=== PATIENT | female | born 1950 | race African-American/Black ===

== ENCOUNTER 2016-12-17 09:04 | Inpatient (IN) | payer MEDICARE, MEDICAID ==
[2016-12-17] VITALS (7 sets, daily range): BP systolic 99–164; BP diastolic 48–92
[~2016-12-17] VITALS: Ht 162.6 cm; Wt 72.6 kg
[2016-12-17] MEDS ORDERED: PRO-STAT LIQUID30 ML ORAL (09:37)
[2016-12-17] MEDS ORDERED: NEPHRO-VITE RX1 EAC1 PO (09:40)
[2016-12-17] MEDS ORDERED: METOPROLOL TART25 MG ORAL (09:40)
[2016-12-17] MEDS ORDERED: LYRICA75 M1 ORAL (09:40)
[2016-12-17] MEDS ORDERED: AMIODARONE HCL400 M1 ORAL (09:40)
[2016-12-17] MEDS ORDERED: NORVASC10 MG ORAL (09:40)
[2016-12-17] MEDS ORDERED: RENAGEL800 MG ORAL (09:40)
[2016-12-17] MEDS ORDERED: LOSARTAN POTASS50 MG ORAL (09:40)
[2016-12-17] MEDS ORDERED: OMEPRAZOLE40 M1 ORAL (09:40)
[2016-12-17 09:53] LABS: MEAN CORPUSCULAR HEMOGLOBIN 26.5 PG (27.0-31.0); MEAN CORPUSCULAR HGB CONC 28.7 G/DL (32.0-36.0); MEAN CORPUSCULAR VOLUME 93 FL (80-99); MEAN PLATELET VOLUME 11.3 FL (6.5-10.1); PLATELET COUNT 128 K/UL (150-450); RED BLOOD COUNT 4.83 M/UL (4.20-5.40); RED CELL DISTRIBUTION WIDTH 21.7 % (11.6-14.8); WHITE BLOOD COUNT 14.4 K/UL (4.8-10.8)
[2016-12-17] MEDS ORDERED: Nitroglycerin Subl 0.4mg tab (Bottle Of 25) SL ONE (10:00)
[2016-12-17 10:09] LABS: PROTHROMBIN TIME 10.3 SEC (9.30-11.50)
[2016-12-17 10:19] LABS: CALCIUM 10.1 mg/dL (8.6-10.2); CREATININE 6.5 mg/dL (0.5-0.9); GLOMERULAR FILTRATION RATE 7.8 mL/min (>60); POTASSIUM 4.9 mEQ/L (3.4-4.9); TOTAL PROTEIN 8.6 g/dL (6.6-8.7)
[2016-12-17 10:30] LABS: TROPONIN I < 0.30 ng/mL (<=0.30)
[2016-12-17] MEDS ORDERED: Ampicillin/Sulbactam Sod 3 GM in NS 110 ML IVPB ONE (10:30)
--- NOTE | 2016-12-17 10:41 | Emergency Room Report ---
History of Present Illness General Chief Complaint: General Complaint Source: Patient, Medical Record Present Illness HPI Patient is a 66-year-old female sent in by ambulance after increased hemoptysis. The patient reportedly coughed up approximately 10 mL of blood which was bright red. She had prior history of end-stage renal disease and was dialyzed yesterday. The patient had prior episodes of similar symptoms. She denied any chest pain. Patient was not noted been nauseated. 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 She reported having some generalized weakness. She denies taking anticoagulants. Allergies: Coded Allergies: [place] (Verified Allergy, Unknown, 12/17/16) MORPHINE (Verified Allergy, Unknown, 12/17/16) STRAWBERRY (Verified Allergy, Unknown, 12/17/16) Uncoded Allergies: PEANUTS (Allergy, Unknown, 12/17/16) PLASTIC TAPE (Allergy, Unknown, 12/17/16) Patient History Past Medical History: see triage record Reviewed Nursing Documentation: PMH: Agreed, PSxH: Agreed Nursing Documentation-PMH Past Medical History: No History, Except For Hx COPD: Yes Hx Diabetes: Yes Hx Gastrointestinal Problems: Yes - GERD Hx Dialysis: Yes - last dialysis 12/16/16 ([facility], [facility], Sat) Review of Systems All Other Systems: negative except mentioned in HPI Physical Exam Vital Signs Date Time Temp Pulse Resp B/P Pulse Ox O2 Delivery O2 Flow Rate FiO2 12/17/16 09:04 97.9 106 18 170/81 96 Room Air Sp02 EP Interpretation: reviewed, normal General Appearance: normal inspection, well appearing, no apparent distress, alert, GCS 15, obese Head: atraumatic ENT: normal ENT inspection, hearing grossly normal, normal voice Neck: normal inspection, full range of motion, supple, no bony tend Respiratory: normal inspection, no respiratory distress, no retraction, no wheezing, rales Cardiovascular #1: regular rate, rhythm, no edema Gastrointestinal: normal inspection, normal bowel sounds, non tender, soft, no guarding, no hernia Genitourinary: no CVA tenderness Musculoskeletal: back normal, normal range of motion, other - metatarsal amputation to right foot\ Neurologic: normal inspection, alert, oriented x3, responsive, homicide investigator III-XII nml as tested, speech normal Psychiatric: normal inspection, judgement/insight normal, mood/affect normal Skin: normal inspection, normal color, no rash Medical Decision Making Diagnostic Impression: Primary Impression: Hemoptysis Additional Impressions: ESRD (end stage renal disease) Anemia Hypertension ER Course Patient presented for hemoptysis. Differential diagnosis included was not limited to pulmonary embolism, tuberculosis arterial venous malformation, necrotizing pneumonia, coagulopathy among others. Because of complexity of patient's case laboratory testing and imaging studies were ordered. A chest x-ray one view interpreted by me showed cardiomegaly without evidence of mediastinal widening, vascular congestion was noted. I laboratory testing was notable for normal potassium as well as adequate hemoglobin and hematocrit and platelet count. The patient noted be somewhat thrombocytopenic. Patient was noted to have elevated white blood count was empirically given IV Unasyn. Patient was typed and screened. Because of patient's acuity the patient is being admitted to the hospital for further management and treatment. Dr. Dheeraj Barriga was contacted for inpatient management since he covers for the patient's primary physician. Dr. venegas was contacted for pulmonary consult. Laboratory Tests Test 12/17/16 09:30 White Blood Count 14.4 K/UL (4.8-10.8) H Red Blood Count 4.83 M/UL (4.20-5.40) Hemoglobin 12.8 G/DL (12.0-16.0) Hematocrit 44.8 % (37.0-47.0) Mean Corpuscular Volume 93 FL (80-99) Mean Corpuscular Hemoglobin 26.5 PG (27.0-31.0) L Mean Corpuscular Hemoglobin Concent 28.7 G/DL (32.0-36.0) L Red Cell Distribution Width 21.7 % (11.6-14.8) H Platelet Count 128 K/UL (150-450) L Mean Platelet Volume 11.3 FL (6.5-10.1) H Neutrophils (%) (Auto) % (45.0-75.0) Lymphocytes (%) (Auto) % (20.0-45.0) Monocytes (%) (Auto) % (1.0-10.0) Eosinophils (%) (Auto) % (0.0-3.0) Basophils (%) (Auto) % (0.0-2.0) Neutrophils % (Manual) Pending Lymphocytes % (Manual) Pending Platelet Estimate Pending Platelet Morphology Pending Prothrombin Time 10.3 SEC (9.30-11.50) Prothrombin Time INR 1.0 (0.9-1.1) PTT 28 SEC (23-33) Sodium Level 141 mEQ/L (135-145) Potassium Level 4.9 mEQ/L (3.4-4.9) Chloride Level 101 mEQ/L (98-107) Carbon Dioxide Level 21 mEQ/L (20-30) Anion Gap 19 (5-15) H Blood Urea Nitrogen 30 mg/dL (7-23) H Creatinine 6.5 mg/dL (0.5-0.9) H Estimate Glomerular Filtration Rate 7.8 mL/min (>60) Glucose Level 233 mg/dL (74-106) H Lactic Acid Level 1.70 mmol/L (0.66-2.22) Calcium Level 10.1 mg/dL (8.6-10.2) Total Bilirubin 0.4 mg/dL (0.0-1.2) Aspartate Amino Transferase (AST) 13 U/L (5-40) Alanine Aminotransferase (ALT) 9 U/L (3-33) Alkaline Phosphatase 112 U/L (35-104) H Total Creatine Kinase 74 U/L (26-140) Creatine Kinase MB Pending Troponin I < 0.30 ng/mL (<=0.30) Total Protein 8.6 g/dL (6.6-8.7) Albumin 4.4 g/dL (3.5-5.2) Globulin 4.2 g/dL Albumin/Globulin Ratio 1.0 (1.0-2.7) Last Vital Signs Date Time Temp Pulse Resp B/P Pulse Ox O2 Delivery O2 Flow Rate FiO2 12/17/16 09:56 99/48 12/17/16 09:04 97.9 106 18 96 Room Air Status: unchanged Disposition: ADMITTED INPATIENT Condition: Serious Referrals: NON PHYSICIAN (PCP) Tarun Bob Dec 17, 2016 10:41
[2016-12-17] MEDS ORDERED: Unasyn 3gm Inj ONE (11:08)
[2016-12-17] MEDS ORDERED: Ampicillin/Sulbactam Sod 3 GM in D5W 110 ML IVPB ONE (11:15)
[2016-12-17 11:26] LABS: ANISOCYTOSIS 2+; BAND NEUTROPHILS % (MANUAL) 4 % (0-8); BASOPHILS % (MANUAL) 0 % (0-2); EOSINOPHILS % (MANUAL) 0 % (0-3); HYPOCHROMASIA 1+; LYMPHOCYTES % (MANUAL) 2 % (20-45); NEUTROPHILS % (MANUAL) 83 % (45-75); PLATELET ESTIMATE DECREASED; PLATELET MORPHOLOGY NORMAL; TOTAL CELLS COUNTED 100
--- NOTE | 2016-12-17 12:18 | Diagnostic Imaging Report ---
Indication: COUGH Technique: One view of the chest Comparison: none Findings: There is mild generalized interstitial edema. The heart is enlarged. There may be a small left pleural effusion. Sizable osseous defects in both humeral heads likely reflect old Hill-Sachs injuries. There is a right jugular tunneled dialysis catheter Impression: Cardiomegaly Mild generalized interstitial edema Suspect bilateral humeral head chronic Hill-Sachs deformity
--- NOTE | 2016-12-17 13:24 | Consultation ---
Consult Note Consult Note asked to eval for dialysis management- Chief Complaint: vomiting and coughing ? blood Patient is a 66-year-old female sent in by ambulance after increased hemoptysis. The patient reportedly coughed up approximately 10 mL of blood which was bright red. She had prior history of end-stage renal disease and was dialyzed yesterday. The patient had prior episodes of similar symptoms. She denied any chest pain. Patient was not noted been nauseated. 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 She reported having some generalized weakness. She denies taking anticoagulants. Allergies: [place] (Verified Allergy, Unknown, 12/17/16) MORPHINE (Verified Allergy, Unknown, 12/17/16) STRAWBERRY (Verified Allergy, Unknown, 12/17/16) PEANUTS (Allergy, Unknown, 12/17/16) PLASTIC TAPE (Allergy, Unknown, 12/17/16) Hx COPD: Yes Hx Diabetes: Yes Hx Gastrointestinal Problems: Yes - GERD Hx Dialysis: Yes - last dialysis 12/16/16 ([facility] Massey, Michele) patient last dialysed yesterday- patient interviewed and examined in ER data reviewed patient lethargic / Tachycardiac- soft abd. previous trans met tarsal amputation left Assessment/Plan status: ESRD- due HD in am 12/18 HTN DM Hemoptysis vs bloody vomitus plan: HD in am- NPO- Per pulm and GI Med adjustment per orders NIALL HOLDER Dec 17, 2016 13:24
--- NOTE | 2016-12-17 15:29 | Consultation ---
History of Present Illness General Date patient seen: Dec 17, 2016 Chief Complaint: General Complaint Referring physician: Dr. Barriga Reason for Consultation: Hemoptysis Present Illness HPI 66-year-old female with hx of CHF, ESRF, DM, COPD, on HD sent in by ambulance with CC of hemoptysis. The patient reportedly coughed up approximately 10 mL of blood which was bright red. She had prior history of end -stage renal disease and was dialyzed yesterday. There are no other symptos, no fever, no chills, nor chest pain. Allergies: Coded Allergies: [place] (Verified Allergy, Unknown, 12/17/16) MORPHINE (Verified Allergy, Unknown, 12/17/16) STRAWBERRY (Verified Allergy, Unknown, 12/17/16) Uncoded Allergies: PEANUTS (Allergy, Unknown, 12/17/16) PLASTIC TAPE (Allergy, Unknown, 12/17/16) Medication History Scheduled Amino Acids/Protein Hydrolys (Pro-Stat Liquid), 30 ML ORAL TWICE A DAY, ( Reported) Amiodarone Hcl* (Amiodarone Hcl*), 200 MG ORAL EVERY 12 HOURS, (Reported) Amlodipine Besylate (Norvasc), 10 MG ORAL DAILY, (Reported) Losartan Potassium* (Losartan Potassium*), 50 MG ORAL BID, (Reported) Metoprolol Tartrate* (Metoprolol Tartrate*), 25 MG ORAL EVERY 12 HOURS, ( Reported) Omeprazole (Omeprazole), 40 MG ORAL DAILY, (Reported) Sevelamer Hcl (Renagel), 800 MG ORAL THREE TIMES A DAY, (Reported) Vit B Cmplx 3/Fa/Vit C/Biotin (Nephro-Pascale Rx Tablet), 1 EACH PO DAILY, ( Reported) Scheduled PRN Pregabalin* (Lyrica*), 75 MG ORAL THREE TIMES A DAY PRN for For Pain, (Reported) Patient History Healthcare decision maker NONE Resuscitation status Do Not Intubate Advanced Directive on File Yes Past Medical/Surgical History Past Medical/Surgical History: (1) ESRD (end stage renal disease) (2) Hypertension (3) HTN (hypertension) (4) Diabetes Review of Systems All Other Systems: negative except mentioned in HPI Physical Exam General Appearance: WD/WN, no apparent distress Lines, tubes and drains: peripheral HEENT: normocephalic, atraumatic Neck: non-tender, normal alignment Respiratory/Chest: chest wall non-tender, rhonchi - left, rhonchi - right Cardiovascular/Chest: normal peripheral pulses, normal rate Abdomen: normal bowel sounds, soft Genitourinary/Rectal: normal genital exam Extremities: normal range of motion, non-tender Last 24 Hour Vital Signs Date Time Temp Pulse Resp B/P Pulse Ox O2 Delivery O2 Flow Rate FiO2 12/17/16 13:58 98.3 98 20 162/92 98 Nasal Cannula 2.0 12/17/16 12:55 2.0 12/17/16 12:53 97.9 97 18 157/79 98 Room Air 3.0 12/17/16 12:38 97 18 157/79 98 Room Air 3.0 12/17/16 11:12 98 18 151/65 96 Room Air 12/17/16 10:38 97 30 160/79 99 Nasal Cannula 3.0 12/17/16 09:56 99/48 12/17/16 09:30 99 18 99/48 97 Nasal Cannula 3.0 12/17/16 09:04 97.9 106 18 170/81 96 Room Air Laboratory Tests Test 12/17/16 09:30 White Blood Count 14.4 K/UL (4.8-10.8) H Red Blood Count 4.83 M/UL (4.20-5.40) Hemoglobin 12.8 G/DL (12.0-16.0) Hematocrit 44.8 % (37.0-47.0) Mean Corpuscular Volume 93 FL (80-99) Mean Corpuscular Hemoglobin 26.5 PG (27.0-31.0) L Mean Corpuscular Hemoglobin Concent 28.7 G/DL (32.0-36.0) L Red Cell Distribution Width 21.7 % (11.6-14.8) H Platelet Count 128 K/UL (150-450) L Mean Platelet Volume 11.3 FL (6.5-10.1) H Neutrophils (%) (Auto) % (45.0-75.0) Lymphocytes (%) (Auto) % (20.0-45.0) Monocytes (%) (Auto) % (1.0-10.0) Eosinophils (%) (Auto) % (0.0-3.0) Basophils (%) (Auto) % (0.0-2.0) Differential Total Cells Counted 100 Neutrophils % (Manual) 83 % (45-75) H Lymphocytes % (Manual) 2 % (20-45) L Monocytes % (Manual) 11 % (1-10) H Eosinophils % (Manual) 0 % (0-3) Basophils % (Manual) 0 % (0-2) Band Neutrophils 4 % (0-8) Platelet Estimate Decreased L Platelet Morphology Normal Hypochromasia 1+ Anisocytosis 2+ Prothrombin Time 10.3 SEC (9.30-11.50) Prothromb Time International Ratio 1.0 (0.9-1.1) Activated Partial Thromboplast Time 28 SEC (23-33) Sodium Level 141 mEQ/L (135-145) Potassium Level 4.9 mEQ/L (3.4-4.9) Chloride Level 101 mEQ/L (98-107) Carbon Dioxide Level 21 mEQ/L (20-30) Anion Gap 19 (5-15) H Blood Urea Nitrogen 30 mg/dL (7-23) H Creatinine 6.5 mg/dL (0.5-0.9) H Estimat Glomerular Filtration Rate 7.8 mL/min (>60) Glucose Level 233 mg/dL (74-106) H Lactic Acid Level 1.70 mmol/L (0.66-2.22) Calcium Level 10.1 mg/dL (8.6-10.2) Total Bilirubin 0.4 mg/dL (0.0-1.2) Aspartate Amino Transf (AST/SGOT) 13 U/L (5-40) Alanine Aminotransferase (ALT/SGPT) 9 U/L (3-33) Alkaline Phosphatase 112 U/L (35-104) H Total Creatine Kinase 74 U/L (26-140) Creatine Kinase MB 3.0 ng/mL (< 3.8) Creatine Kinase MB Relative Index 4.0 Troponin I < 0.30 ng/mL (<=0.30) Total Protein 8.6 g/dL (6.6-8.7) Albumin 4.4 g/dL (3.5-5.2) Globulin 4.2 g/dL Albumin/Globulin Ratio 1.0 (1.0-2.7) Height (Feet): 5 Height (Inches): 4.00 Weight (Pounds): 160 Medications Current Medications Medications (Trade) Dose Ordered Sig/Gretchen Route PRN Reason Start Time Stop Time Status Last Admin Dose Admin Amiodarone HCl (Cordarone) 200 mg EVERY 12 HOURS ORAL 12/17/16 21:00 01/16/17 20:59 Amlodipine Besylate (Norvasc) 10 mg DAILY ORAL 12/18/16 09:00 01/17/17 08:59 Dextrose/Sodium Chloride (D5 0.45% NS) 1,000 ml @ 50 mls/hr Q20H IV 12/17/16 13:30 01/16/17 13:29 Losartan Potassium (Cozaar) 50 mg BID ORAL 12/17/16 18:00 01/16/17 17:59 Metoprolol Tartrate (Lopressor) 25 mg EVERY 12 HOURS ORAL 12/17/16 21:00 01/16/17 20:59 Pantoprazole (Protonix) 40 mg DAILY ORAL 12/17/16 13:30 01/16/17 13:29 Sevelamer Carbonate 800 mg 800 mg THREE TIMES A DAY ORAL 12/17/16 18:00 01/16/17 17:59 Assessment/Plan Problem List: (1) Hemoptysis ICD Codes: R04.2 - Hemoptysis SNOMED: 42540604 (2) ESRD (end stage renal disease) ICD Codes: N18.6 - End stage renal disease SNOMED: 21752790 (3) Hypertension ICD Codes: I10 - Essential (primary) hypertension SNOMED: 68189128 (4) Diabetes ICD Codes: E11.9 - Type 2 diabetes mellitus without complications SNOMED: 70517486 (5) Leukocytosis ICD Codes: D72.829 - Elevated white blood cell count, unspecified SNOMED: 356727844, 932919366 Assessment/Plan check sputum monitor in teli or VENUS most likely hemrrhagic bronchitis Renal f/u for HD monitor BP sliding scale, diabetic diet. MILO CRAMER Dec 17, 2016 15:29
[2016-12-17] MEDS ORDERED: Mylanta II UD 30ml ORAL PRN (15:30)
[2016-12-17] MEDS ORDERED: Zolpidem 5mg tab ORAL PRN (15:30)
[2016-12-17] MEDS ORDERED: DuoNeb 0.5-3(2.5)mg/3ml neb HHN PRN (15:30)
[2016-12-17] MEDS ORDERED: Miralax 17gm pkt ORAL PRN (15:30)
--- NOTE | 2016-12-17 16:14 | GI Initial Consult Note ---
ElbaMayra Konstantin N.P. 12/17/16 1614: History of Present Illness General Date patient seen: Dec 17, 2016 Time patient seen: 16:08 Reason for Hospitalization: General Complaint Referring physician: CATARINA CHAU Reason for Consultation: ABNORMAL PAIN Present Illness HPI Patient is a 66-year-old female sent in by ambulance after increased hemoptysis. The patient reportedly coughed up approximately 10 mL of blood which was bright red. She had prior history of end-stage renal disease and was dialyzed yesterday. The patient had prior episodes of similar symptoms. She denied any chest pain. Patient was not noted been nauseated. 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 She reported having some generalized weakness. She denies taking anticoagulants. GI CONSULT: HPI as noted above. GI consulted for abdominal pain. Pt seen on floor, awake A&Ox4 NAD with no active s/sx N/V or hemoptysis. Pt said she had abdominal discomfort prior to admission, however, she denies any GI symptoms. Stated she had cough up blood as noted before. She presents today leukocytosis and and elevated alkaline phosphatase. No history of colonoscopy. Home Meds Reported Medications Zolpidem Tartrate* (AMBIEN*) 5 Mg Tablet, 5 MG ORAL BEDTIME Y for Insomnia, TAB 12/21/16 Vancomycin Hcl/D5w (VANCOMYCIN-D5W 1 G/250 ML) 1 Gm/250 Ml Plast..bag, 500 MG IVPB, BAG POST HD 12/21/16 Pregabalin* (LYRICA*) 75 Mg Capsule, 75 MG ORAL THREE TIMES A DAY, CAP 12/21/16 Polyethylene Glycol 3350* (MIRALAX*) 17 Gm Powd.pack, 17 GM ORAL PRN Y for Constipation, PACKET 12/21/16 Pantoprazole* (PROTONIX*) 40 Mg Tablet.dr, 40 MG ORAL DAILY, TAB 12/21/16 Ondansetron* (ZOFRAN*) 4 Mg Tablet, 4 MG ORAL Q6H Y for Nausea & Vomiting, TAB 12/21/16 Ipratropium/Albuterol Sulfate (DuoNeb 0.5-3(2.5)mg/3ml) 3 Ml Ampul.neb, 3 ML HHN Q6HR Y for Shortness of Breath, EA 12/21/16 Insulin Aspart (Novolog Flexpen) 100 Unit/1 Ml Insuln.pen, SUBQ BEFORE MEALS AND HS Insulin Protocol 12/21/16 Donepezil Hcl* (ARICEPT*) 5 Mg Tablet, 5 MG ORAL QHS, TAB 12/21/16 Docusate Sodium* (COLACE*) 100 Mg Capsule, 100 MG ORAL THREE TIMES A DAY, CAP 12/21/16 Clonidine Hcl (CLONIDINE HCL) 0.1 Mg Tablet, 0.1 MG PO Q4HR Y for For High Blood Pressure, TAB for SBP >160 12/21/16 Ceftazidime Pentahydrate (FORTAZ) 1 Gm Vial, 1 GM IV, VIAL POST HD 12/21/16 Amlodipine Besylate (Norvasc) 10 Mg Tablet, 10 MG ORAL DAILY, TAB 12/21/16 Amiodarone Hcl* (PACERONE*) 200 Mg Tablet, 200 MG ORAL EVERY 12 HOURS, TAB 12/21/16 Al Hydroxide/mg Hydroxide (Mag-Al Plus Suspension) 30 Ml Oral.susp, 30 ML ORAL Q6HR, ML PRN Dyspepsia 12/21/16 Acetaminophen (Acetaminophen) 325 Mg Capsule, 625 MG PO Q4HR Y for Fever/ Headache/Mild Pain, CAP 12/21/16 Pregabalin* (LYRICA*) 75 Mg Capsule, 75 MG ORAL THREE TIMES A DAY Y for For Pain , CAP 12/17/16 Omeprazole (OMEPRAZOLE) 40 Mg Capsule.dr, 40 MG ORAL DAILY, CAP 12/17/16 Vit B Cmplx 3/Fa/Vit C/Biotin (NEPHRO-SIMON RX TABLET) 1 Each Tablet, 1 EACH PO DAILY, TAB 12/17/16 Amlodipine Besylate (Norvasc) 10 Mg Tablet, 10 MG ORAL DAILY, TAB 12/17/16 Amiodarone Hcl* (AMIODARONE HCL*) 400 Mg Tablet, 200 MG ORAL EVERY 12 HOURS, TAB 12/17/16 Metoprolol Tartrate* (METOPROLOL TARTRATE*) 25 Mg Tablet, 25 MG ORAL EVERY 12 HOURS, TAB 12/17/16 Losartan Potassium* (LOSARTAN POTASSIUM*) 50 Mg Tablet, 50 MG ORAL BID, TAB 12/17/16 Sevelamer Hcl (RENAGEL) 800 Mg Tablet, 800 MG ORAL THREE TIMES A DAY, #90 TAB 0 Refills 12/17/16 Amino Acids/Protein Hydrolys (PRO-STAT LIQUID) 30 Ml Liquid.pkt, 30 ML ORAL TWICE A DAY, ML 12/17/16 Med list reviewed/reconciled: Yes Allergies: Coded Allergies: [place] (Verified Allergy, Unknown, 12/17/16) MORPHINE (Verified Allergy, Unknown, 12/17/16) STRAW[place]ERRY (Verified Allergy, Unknown, 12/17/16) Uncoded Allergies: PEANUTS (Allergy, Unknown, 12/17/16) PLASTIC TAPE (Allergy, Unknown, 12/17/16) Patient History History Provided By: Patient, Medical Record PMH Narrative Past Medical History: No History, Except For Hx COPD: Yes Hx Diabetes: Yes Hx Gastrointestinal Problems: Yes - GERD Hx Dialysis: Yes - last dialysis 12/16/16 ([facility], [facility]) Social History: Denies: alcohol use, drug use, other, smoking Review of Systems All Other Systems: negative except mentioned in HPI Physical Exam Vital Signs Date Time Temp Pulse Resp B/P Pulse Ox O2 Delivery O2 Flow Rate FiO2 12/17/16 09:04 97.9 106 18 170/81 96 Room Air 12/17/16 09:30 3.0 Sp02 EP Interpretation: reviewed Labs Laboratory Tests Test 12/17/16 09:30 White Blood Count 14.4 K/UL (4.8-10.8) H Red Blood Count 4.83 M/UL (4.20-5.40) Hemoglobin 12.8 G/DL (12.0-16.0) Hematocrit 44.8 % (37.0-47.0) Mean Corpuscular Volume 93 FL (80-99) Mean Corpuscular Hemoglobin 26.5 PG (27.0-31.0) L Mean Corpuscular Hemoglobin Concent 28.7 G/DL (32.0-36.0) L Red Cell Distribution Width 21.7 % (11.6-14.8) H Platelet Count 128 K/UL (150-450) L Mean Platelet Volume 11.3 FL (6.5-10.1) H Neutrophils (%) (Auto) % (45.0-75.0) Lymphocytes (%) (Auto) % (20.0-45.0) Monocytes (%) (Auto) % (1.0-10.0) Eosinophils (%) (Auto) % (0.0-3.0) Basophils (%) (Auto) % (0.0-2.0) Differential Total Cells Counted 100 Neutrophils % (Manual) 83 % (45-75) H Lymphocytes % (Manual) 2 % (20-45) L Monocytes % (Manual) 11 % (1-10) H Eosinophils % (Manual) 0 % (0-3) Basophils % (Manual) 0 % (0-2) Band Neutrophils 4 % (0-8) Platelet Estimate Decreased L Platelet Morphology Normal Hypochromasia 1+ Anisocytosis 2+ Prothrombin Time 10.3 SEC (9.30-11.50) Prothromb Time International Ratio 1.0 (0.9-1.1) Activated Partial Thromboplast Time 28 SEC (23-33) Sodium Level 141 mEQ/L (135-145) Potassium Level 4.9 mEQ/L (3.4-4.9) Chloride Level 101 mEQ/L (98-107) Carbon Dioxide Level 21 mEQ/L (20-30) Anion Gap 19 (5-15) H Blood Urea Nitrogen 30 mg/dL (7-23) H Creatinine 6.5 mg/dL (0.5-0.9) H Estimat Glomerular Filtration Rate 7.8 mL/min (>60) Glucose Level 233 mg/dL (74-106) H Lactic Acid Level 1.70 mmol/L (0.66-2.22) Calcium Level 10.1 mg/dL (8.6-10.2) Total Bilirubin 0.4 mg/dL (0.0-1.2) Aspartate Amino Transf (AST/SGOT) 13 U/L (5-40) Alanine Aminotransferase (ALT/SGPT) 9 U/L (3-33) Alkaline Phosphatase 112 U/L (35-104) H Total Creatine Kinase 74 U/L (26-140) Creatine Kinase MB 3.0 ng/mL (< 3.8) Creatine Kinase MB Relative Index 4.0 Troponin I < 0.30 ng/mL (<=0.30) Total Protein 8.6 g/dL (6.6-8.7) Albumin 4.4 g/dL (3.5-5.2) Globulin 4.2 g/dL Albumin/Globulin Ratio 1.0 (1.0-2.7) General Appearance: well appearing, no apparent distress, alert Head: normocephalic EENT: normal ENT inspection Neck: supple Respiratory: normal breath sounds, no respiratory distress Cardiovascular: normal rate Gastrointestinal: normal inspection, non tender, soft Neurologic: normal inspection, alert, oriented x3, responsive Psychiatric: normal inspection, judgement/insight normal, memory normal Skin: normal inspection, normal color, no rash Lymphatic: normal inspection, no adenopathy Current Medications Current Medications Medications (Trade) Dose Ordered Sig/Gretchen Route PRN Reason Start Time Stop Time Status Last Admin Dose Admin Acetaminophen (Tylenol) 650 mg Q4H PRN ORAL fever 12/17/16 15:30 01/16/17 15:29 Al Hydroxide/Mg Hydroxide (Mylanta II) 30 ml Q6H PRN ORAL dyspepsia 12/17/16 15:30 01/16/17 15:29 Albuterol/ Ipratropium (DuoNeb 0.5-3(2.5)mg/3ml) 3 ml Q6HRT PRN HHN dyspnea 12/17/16 15:30 12/22/16 15:29 Amiodarone HCl (Cordarone) 200 mg EVERY 12 HOURS ORAL 12/17/16 21:00 01/16/17 20:59 Amlodipine Besylate (Norvasc) 10 mg DAILY ORAL 12/18/16 09:00 01/17/17 08:59 Clonidine HCl (Catapres) 0.1 mg Q4H PRN ORAL For High Blood Pressure 12/17/16 15:30 01/16/17 15:29 Dextrose (Dextrose 50%) STAT PRN IV Hypoglycemia 12/17/16 15:30 01/16/17 15:29 Dextrose/Sodium Chloride (D5 0.45% NS) 1,000 ml @ 50 mls/hr Q20H IV 12/17/16 13:30 01/16/17 13:29 Insulin Aspart (NovoLOG) BEFORE MEALS AND HS SUBQ 12/17/16 16:30 01/16/17 16:29 Losartan Potassium (Cozaar) 50 mg BID ORAL 12/17/16 18:00 01/16/17 17:59 Metoprolol Tartrate (Lopressor) 25 mg EVERY 12 HOURS ORAL 12/17/16 21:00 01/16/17 20:59 Ondansetron HCl (Zofran) 4 mg Q6H PRN IVP Nausea & Vomiting 12/17/16 15:30 01/16/17 15:29 Pantoprazole (Protonix) 40 mg DAILY ORAL 12/17/16 13:30 01/16/17 13:29 Polyethylene Glycol (Miralax) 17 gm HSPRN PRN ORAL Constipation 12/17/16 15:30 01/16/17 15:29 Sevelamer Carbonate 800 mg 800 mg THREE TIMES A DAY ORAL 12/17/16 18:00 01/16/17 17:59 Zolpidem Tartrate (Ambien) 5 mg HSPRN PRN ORAL Insomnia 12/17/16 15:30 01/16/17 15:29 GI: Plan Problems: (1) Abdominal pain (2) Alkaline phosphatase elevation (3) Hemoptysis Plan symptomatic treatment at this time zofran prn monitor H&H, transfuse prn ppi bowel regime fu labs outpatient GI procedures Discussed with Dr. Parker. Thank you for referring this patient, we will follow. CAREY PARKER 12/22/16 1224: History of Present Illness General Reason for Hospitalization: General Complaint Present Illness Home Meds Reported Medications Zolpidem Tartrate* (AMBIEN*) 5 Mg Tablet, 5 MG ORAL BEDTIME Y for Insomnia, TAB 12/21/16 Vancomycin Hcl/D5w (VANCOMYCIN-D5W 1 G/250 ML) 1 Gm/250 Ml Plast..bag, 500 MG IVPB, BAG POST HD 12/21/16 Pregabalin* (LYRICA*) 75 Mg Capsule, 75 MG ORAL THREE TIMES A DAY, CAP 12/21/16 Polyethylene Glycol 3350* (MIRALAX*) 17 Gm Powd.pack, 17 GM ORAL PRN Y for Constipation, PACKET 12/21/16 Pantoprazole* (PROTONIX*) 40 Mg Tablet.dr, 40 MG ORAL DAILY, TAB 12/21/16 Ondansetron* (ZOFRAN*) 4 Mg Tablet, 4 MG ORAL Q6H Y for Nausea & Vomiting, TAB 12/21/16 Ipratropium/Albuterol Sulfate (DuoNeb 0.5-3(2.5)mg/3ml) 3 Ml Ampul.neb, 3 ML HHN Q6HR Y for Shortness of Breath, EA 12/21/16 Insulin Aspart (Novolog Flexpen) 100 Unit/1 Ml Insuln.pen, SUBQ BEFORE MEALS AND HS Insulin Protocol 12/21/16 Donepezil Hcl* (ARICEPT*) 5 Mg Tablet, 5 MG ORAL QHS, TAB 12/21/16 Docusate Sodium* (COLACE*) 100 Mg Capsule, 100 MG ORAL THREE TIMES A DAY, CAP 12/21/16 Clonidine Hcl (CLONIDINE HCL) 0.1 Mg Tablet, 0.1 MG PO Q4HR Y for For High Blood Pressure, TAB for SBP >160 12/21/16 Ceftazidime Pentahydrate (FORTAZ) 1 Gm Vial, 1 GM IV, VIAL POST HD 12/21/16 Amlodipine Besylate (Norvasc) 10 Mg Tablet, 10 MG ORAL DAILY, TAB 12/21/16 Amiodarone Hcl* (PACERONE*) 200 Mg Tablet, 200 MG ORAL EVERY 12 HOURS, TAB 12/21/16 Al Hydroxide/mg Hydroxide (Mag-Al Plus Suspension) 30 Ml Oral.susp, 30 ML ORAL Q6HR, ML PRN Dyspepsia 12/21/16 Acetaminophen (Acetaminophen) 325 Mg Capsule, 625 MG PO Q4HR Y for Fever/ Headache/Mild Pain, CAP 12/21/16 Pregabalin* (LYRICA*) 75 Mg Capsule, 75 MG ORAL THREE TIMES A DAY Y for For Pain , CAP 12/17/16 Omeprazole (OMEPRAZOLE) 40 Mg Capsule.dr, 40 MG ORAL DAILY, CAP 12/17/16 Vit B Cmplx 3/Fa/Vit C/Biotin (NEPHRO-SIMON RX TABLET) 1 Each Tablet, 1 EACH PO DAILY, TAB 12/17/16 Amlodipine Besylate (Norvasc) 10 Mg Tablet, 10 MG ORAL DAILY, TAB 12/17/16 Amiodarone Hcl* (AMIODARONE HCL*) 400 Mg Tablet, 200 MG ORAL EVERY 12 HOURS, TAB 12/17/16 Metoprolol Tartrate* (METOPROLOL TARTRATE*) 25 Mg Tablet, 25 MG ORAL EVERY 12 HOURS, TAB 12/17/16 Losartan Potassium* (LOSARTAN POTASSIUM*) 50 Mg Tablet, 50 MG ORAL BID, TAB 12/17/16 Sevelamer Hcl (RENAGEL) 800 Mg Tablet, 800 MG ORAL THREE TIMES A DAY, #90 TAB 0 Refills 12/17/16 Amino Acids/Protein Hydrolys (PRO-STAT LIQUID) 30 Ml Liquid.pkt, 30 ML ORAL TWICE A DAY, ML 12/17/16 Allergies: Coded Allergies: [place] (Verified Allergy, Unknown, 12/17/16) MORPHINE (Verified Allergy, Unknown, 12/17/16) [place]Y (Verified Allergy, Unknown, 12/17/16) Uncoded Allergies: PEANUTS (Allergy, Unknown, 12/17/16) PLASTIC TAPE (Allergy, Unknown, 12/17/16) GI: Plan Plan The patient was seen and examined at bedside and all new and available data was reviewed in the patients chart. I agree with the above findings, impression and plan. (Patient seen earlier today. Signature stamp does not reflect patient encounter time.). -Stefani Sam MDh Konstantin Batres Dec 17, 2016 16:14 CAREY PARKER Dec 22, 2016 12:24
[2016-12-17] MEDS: D5 1/2NS 1,000 ML IV SCH (16:27)
[2016-12-17] MEDS: Losartan 50mg tab ORAL SCH (16:28)
[2016-12-17] MEDS: Docusate 100mg cap ORAL SCH (16:28)
[2016-12-17] MEDS: NovoLOG Insulin Flexpen SUBQ SCH ×2 (17:06→22:40)
--- NOTE | 2016-12-17 18:22 | Cardiac Electrophysiology PN ---
Subjective Subjective [id number]. HTN, ? atrial fib on AMiodarone. ESRD. Hemptysis. Objective Last 24 Hour Vital Signs Date Time Temp Pulse Resp B/P Pulse Ox O2 Delivery O2 Flow Rate FiO2 12/17/16 16:28 162/82 12/17/16 16:00 98.0 102 24 164/81 100 Nasal Cannula 3.0 12/17/16 16:00 102 12/17/16 13:58 98.3 98 20 162/92 98 Nasal Cannula 2.0 12/17/16 12:55 2.0 12/17/16 12:53 97.9 97 18 157/79 98 Room Air 3.0 12/17/16 12:38 97 18 157/79 98 Room Air 3.0 12/17/16 11:12 98 18 151/65 96 Room Air 12/17/16 10:38 97 30 160/79 99 Nasal Cannula 3.0 12/17/16 09:56 99/48 12/17/16 09:30 99 18 99/48 97 Nasal Cannula 3.0 12/17/16 09:04 97.9 106 18 170/81 96 Room Air Laboratory Tests Test 12/17/16 09:30 White Blood Count 14.4 K/UL (4.8-10.8) H Red Blood Count 4.83 M/UL (4.20-5.40) Hemoglobin 12.8 G/DL (12.0-16.0) Hematocrit 44.8 % (37.0-47.0) Mean Corpuscular Volume 93 FL (80-99) Mean Corpuscular Hemoglobin 26.5 PG (27.0-31.0) L Mean Corpuscular Hemoglobin Concent 28.7 G/DL (32.0-36.0) L Red Cell Distribution Width 21.7 % (11.6-14.8) H Platelet Count 128 K/UL (150-450) L Mean Platelet Volume 11.3 FL (6.5-10.1) H Neutrophils (%) (Auto) % (45.0-75.0) Lymphocytes (%) (Auto) % (20.0-45.0) Monocytes (%) (Auto) % (1.0-10.0) Eosinophils (%) (Auto) % (0.0-3.0) Basophils (%) (Auto) % (0.0-2.0) Differential Total Cells Counted 100 Neutrophils % (Manual) 83 % (45-75) H Lymphocytes % (Manual) 2 % (20-45) L Monocytes % (Manual) 11 % (1-10) H Eosinophils % (Manual) 0 % (0-3) Basophils % (Manual) 0 % (0-2) Band Neutrophils 4 % (0-8) Platelet Estimate Decreased L Platelet Morphology Normal Hypochromasia 1+ Anisocytosis 2+ Prothrombin Time 10.3 SEC (9.30-11.50) Prothromb Time International Ratio 1.0 (0.9-1.1) Activated Partial Thromboplast Time 28 SEC (23-33) Sodium Level 141 mEQ/L (135-145) Potassium Level 4.9 mEQ/L (3.4-4.9) Chloride Level 101 mEQ/L (98-107) Carbon Dioxide Level 21 mEQ/L (20-30) Anion Gap 19 (5-15) H Blood Urea Nitrogen 30 mg/dL (7-23) H Creatinine 6.5 mg/dL (0.5-0.9) H Estimat Glomerular Filtration Rate 7.8 mL/min (>60) Glucose Level 233 mg/dL (74-106) H Lactic Acid Level 1.70 mmol/L (0.66-2.22) Calcium Level 10.1 mg/dL (8.6-10.2) Total Bilirubin 0.4 mg/dL (0.0-1.2) Aspartate Amino Transf (AST/SGOT) 13 U/L (5-40) Alanine Aminotransferase (ALT/SGPT) 9 U/L (3-33) Alkaline Phosphatase 112 U/L (35-104) H Total Creatine Kinase 74 U/L (26-140) Creatine Kinase MB 3.0 ng/mL (< 3.8) Creatine Kinase MB Relative Index 4.0 Troponin I < 0.30 ng/mL (<=0.30) Total Protein 8.6 g/dL (6.6-8.7) Albumin 4.4 g/dL (3.5-5.2) Globulin 4.2 g/dL Albumin/Globulin Ratio 1.0 (1.0-2.7) KADEN ZHU Dec 17, 2016 18:22
[2016-12-17] MEDS ORDERED: Vancomycin 500 MG in D5W 110 ML IVPB SCH (18:30)
--- NOTE | 2016-12-17 20:18 | History and Physical Report ---
DATE OF ADMISSION: 12/17/2016 TIME: 1 p.m. CONSULTANTS: 1. Ely Spaulding M.D. 2. Ranjeet Herrera M.D. 3. Daniel Lorenzo M.D. 4. Bran Conn M.D. 5. Cordell Hung M.D. 6. Tj Batres M.D. CHIEF COMPLAINT: Weakness, hemoptysis, ESRD, and lethargy. BRIEF HISTORY: This is a 66-year-old female comes from [facility] with above-mentioned diagnoses, diagnosed as above, admitted to [facility] for further care. Currently, in bed, not talking much. PAST MEDICAL HISTORY: CHF, ESRD, and lethargy. PAST SURGICAL HISTORY: Foot amputation. MEDICATIONS: Norvasc, Cordarone, Lopressor, Cozaar, Renvela, and Protonix. ALLERGIES: Morphine and plastic tape. SOCIAL HISTORY: No smoking, alcohol or intravenous drug abuse. FAMILY HISTORY: Noncontributory. REVIEW OF SYSTEMS: Not available. PHYSICAL EXAMINATION: GENERAL: The patient is lethargic in bed, not really responding to questions. VITAL SIGNS: Temperature is 97 degrees, pulse 97, respiratory rate 18, and blood pressure 137/79. CARDIOVASCULAR: No murmur. LUNGS: Poor air exchange. ABDOMEN: Bowel sounds are positive. Nontender and nondistended. EXTREMITIES: No cyanosis, clubbing, or edema. NEUROLOGIC: The patient moves extremities, but slightly weak. LABORATORY AND DIAGNOSTIC DATA: White count 14, hemoglobin and hematocrit 12 and 44 and platelet is 128,000. BMP show BUN and creatinine 30/6.5 and glucose 233. INR is 1.0. ASSESSMENT: 1. Hemoptysis. 2. Leukocytosis. 3. End-stage renal disease. 4. Congestive heart failure. 5. Diabetes. 6. Foot amputation. 7. Lethargy. PLAN: Continue premedications. O2 and pulmonary treatment. Antibiotics per Infectious Disease. Blood pressure and blood sugar control. Dialysis p.r.n. PT/OT. Dietary evaluation. CBC and BMP in the morning. Dr. Spaulding, Dr. Herrera, Dr. Lorenzo, Dr. Conn, Dr. Hung, and Dr. Batres and Dr. Garcia to consult. I will continue to follow the patient medically. Dheeraj Barriga D.O. DR: DAVID JOB#: [id number] CC:
[2016-12-17] MEDS ORDERED: cefTAZidime 1gm/D5W 55ml IV ONE ×2 (20:30)
[2016-12-17] MEDS: Metoprolol 25mg tab ORAL SCH (21:00)
[2016-12-17] MEDS: Amiodarone 200mg tab ORAL SCH (21:00)
[2016-12-17] MEDS ORDERED: Vancomycin 1250mg/D5W 275ml IVPB ONE ×2 (21:00)
--- NOTE | 2016-12-17 23:08 | Consultation ---
DATE OF CONSULTATION: 12/17/2016 CARDIOLOGY CONSULTATION CONSULTING PHYSICIAN: Ranjeet Herrera M.D. REFERRING PHYSICIAN: Dheeraj Barriga D.O. REASON FOR CONSULTATION: Shortness of breath. HISTORY OF PRESENT ILLNESS: The patient is a 66-year-old, -[place] lady with history of hypertension and end-stage renal disease, on hemodialysis. The patient was brought to the emergency room after the patient coughed approximately 10 mL of blood. It was bright red. The patient had similar prior episodes. She denies any chest pain. The patient has a history of peripheral vascular disease status post amputation of right metatarsal. A Cardiology consultation was obtained for further evaluation. PAST MEDICAL HISTORY: 1. History of hypertension. 2. History of diabetes. 3. End-stage renal disease, on hemodialysis. 4. Gastroesophageal reflux disease. 5. Chronic obstructive pulmonary disease. ALLERGIES: The patient is allergic to almond, morphine, strawberry, peanuts, and plastic tape. REVIEW OF SYSTEMS: Review of systems was performed and was negative other than what was mentioned in the history of present illness. PHYSICAL EXAMINATION: VITAL SIGNS: Blood pressure is 162/82, pulse is 102, and respirations 24. HEAD AND NECK: Showed no JVD. LUNGS: Decreased breath sounds. CARDIOVASCULAR: Shows tachycardic. S1 and S2 with no gallop or murmur. ABDOMEN: Soft. EXTREMITIES: Status post right metatarsal amputation. A 1+ pitting edema. LABORATORY AND DIAGNOSTIC DATA: Her EKG shows sinus rhythm with nonspecific ST-T wave abnormality. White count 14.2, hemoglobin 12.8, hematocrit 44.8, and platelet 128,000. Sodium 141, potassium 4.9, BUN 30, creatinine 6.5, and glucose of 233. INR is 1.0. ASSESSMENT AND PLAN: 1. Shortness of breath due to volume overload. The patient will be getting hemodialysis. 2. Hypertension on Norvasc 10 mg daily and metoprolol 25 mg b.i.d. as well as Cozaar 50 mg b.i.d. and hemodialysis. I will add p.r.n. clonidine to her medical regimen. 3. Volume overload due to renal failure. We will get an echocardiogram for further evaluation. 4. Questionable atrial fibrillation. The patient is on amiodarone 200 mg b.i.d. and metoprolol 25 mg b.i.d. They will be continued at this time until we get further information. patient's first hospitalization to [facility]. 5. Anemia due to renal failure. 6. Diabetes. Thank you very much, Dr. Barriga, for allowing me to participate in the care of this patient. Please do not hesitate to contact me for any questions regarding my evaluation. Ranjeet Herrera M.D. DR: RODRICK JOB#: [id number] CC:
[2016-12-18] VITALS (7 sets, daily range): BP systolic 111–153; BP diastolic 51–80
--- NOTE | 2016-12-18 01:48 | Consultation ---
DATE OF CONSULTATION: INFECTIOUS DISEASES CONSULTATION REQUESTING PHYSICIAN: Dheeraj Barriga D.O. REASON FOR CONSULTATION: Interstitial lung infiltration, slight pneumonia with hemoptysis. Recommendation for antibiotics therapy. HISTORY OF PRESENT ILLNESS: The patient is a 66-year-old female, who was brought into [facility] Emergency Room for recurrent cough with bright blood in her sputum. The patient had episodes of hemoptysis in the past, but never seeked any medical attention, denied chest pain and denied shortness of breath, complained of weakness. The patient is not on any anti-coagulation. She is an end-stage renal disease patient and she was dialyzed yesterday. In the emergency room, the patient's temperature was 97.9, pulse oxygen 96% on room air. Chest x-ray showed interstitial lung infiltration compatible with congestion, so she was given dose of Unasyn and was consulted by the primary provider for antibiotics in addition for possible pneumonia treatment. REVIEW OF SYSTEMS: A 12-point of system reviewed were all negative apart from the one mentioned above in the History and Physical. PAST MEDICAL HISTORY: Significant for COPD, diabetes, GERD, interstitial lung disease, on hemodialysis. PAST SURGICAL HISTORY: Negative. ALLERGIES: She is allergic to almond, morphine, and strawberry. FAMILY HISTORY: Not contributory. MEDICATION: The patient received Unasyn in the emergency room. For rest of her meds, please refer to [facility]. LABORATORY DATA: CBC showed white count of 14.4, hemoglobin 7.8, platelet count 128,000. BUN 17, creatinine 6.5, and calcium of 4.9. Imaging, chest x-ray showed cardiomegaly with mild generalized interstitial edema. PHYSICAL EXAMINATION: VITAL SIGNS: Temperature 98.3 degrees, pulse 98, respirations 20, and blood pressure 162/92, saturation 98% on two liters. GENERAL: A middle-aged female with dementia, lying in bed. Awake, alert, and comfortable, not in distress. HEENT: Normocephalic and atraumatic. Pupils both reactive to light equally. Moist oral mucosa. No exudate. NECK: Supple. No lymphadenopathy. CARDIOVASCULAR: She is tachycardiac. S1 and S2 are positive. LUNGS: She had crackles with diminished breathing sound at the bases. ABDOMEN: Soft, nontender, and nondistended. Positive bowel sounds. No hepatosplenomegaly. No ascites. EXTREMITIES: No edema or cyanosis. Left hip wound is dry. There is no evidence of redness or drainage. ASSESSMENT AND PLAN: 1. Interstitial infiltrate, suspect pneumonia. We will cover him with vancomycin and ceftazidime. We sent sputum culture and blood culture. 2. Hemoptysis and the etiology could be due to pneumonia. Management and further re-evaluation as per her pulmonary provider. 3. End-stage renal disease, on hemodialysis, consult Renal. Continue hemodialysis as before. 4. Chronic obstructive pulmonary disease, continue nebulizer treatment and oxygen as needed. 5. Diabetes, recommend tight glycemic control to keep blood sugar between 80 to 120. Ajay Garcia M.D. DR: Mahsa JOB#: [id number] CC:
[2016-12-18 04:52] LABS: MEAN CORPUSCULAR HEMOGLOBIN 26.9 PG (27.0-31.0); MEAN CORPUSCULAR HGB CONC 29.6 G/DL (32.0-36.0); MEAN CORPUSCULAR VOLUME 91 FL (80-99); PLATELET COUNT 122 K/UL (150-450); RED BLOOD COUNT 3.63 M/UL (4.20-5.40); RED CELL DISTRIBUTION WIDTH 22.2 % (11.6-14.8); WHITE BLOOD COUNT 17.5 K/UL (4.8-10.8)
[2016-12-18 05:13] LABS: ALANINE AMINOTRANSFERASE 8 U/L (3-33); ALBUMIN/GLOBULIN RATIO 0.9 (1.0-2.7); ANION GAP 20 (5-15); ASPARTATE AMINO TRANSFERASE 11 U/L (5-40); CALCIUM 9.1 mg/dL (8.6-10.2); CARBON DIOXIDE 21 mEQ/L (20-30); CHLORIDE 100 mEQ/L (98-107); CHOLESTEROL 128 mg/dL (< 200); CHOLESTEROL/HDL RATIO 1.9 (3.3-4.4); CREATININE 7.5 mg/dL (0.5-0.9); GLOMERULAR FILTRATION RATE 6.5 mL/min (>60); HEMOLYSIS 3; LDL CHOLESTEROL (CALC.) 49 mg/dL (60-99); MAGNESIUM 2.2 mg/dL (1.7-2.5); PHOSPHORUS 6.2 mg/dL (2.5-4.8); POTASSIUM 5.2 mEQ/L (3.4-4.9); SODIUM 141 mEQ/L (135-145); TOTAL PROTEIN 7.1 g/dL (6.6-8.7); URIC ACID 5.5 mg/dL (3.0-7.5)
[2016-12-18] MEDS: NovoLOG Insulin Flexpen SUBQ SCH ×4 (05:29→20:49)
[2016-12-18] MEDS ORDERED: CefTAZidime 1 GM in D5W 55 ML IV SCH ×2 (06:00→18:00)
--- NOTE | 2016-12-18 07:17 | General Progress Note ---
Assessment/Plan Problem List: (1) HTN (hypertension) ICD Codes: I10 - Essential (primary) hypertension SNOMED: 61064260 (2) CHF (congestive heart failure) ICD Codes: I50.9 - Heart failure, unspecified SNOMED: 69019014 (3) Diabetes ICD Codes: E11.9 - Type 2 diabetes mellitus without complications SNOMED: 95656929 (4) Leukocytosis ICD Codes: D72.829 - Elevated white blood cell count, unspecified SNOMED: 991151909, 168419992 (5) Anemia ICD Codes: D64.9 - Anemia, unspecified SNOMED: 069829546 (6) ESRD (end stage renal disease) ICD Codes: N18.6 - End stage renal disease SNOMED: 84963762 (7) Hypertension ICD Codes: I10 - Essential (primary) hypertension SNOMED: 34158221 (8) Hemoptysis ICD Codes: R04.2 - Hemoptysis SNOMED: 29174881 (9) Abdominal pain ICD Codes: R10.9 - Unspecified abdominal pain SNOMED: 59643152 Status: stable, progressing, tolerating diet Assessment/Plan ot pt diet abx dialysis cbc bmp am Subjective Constitutional: Reports: weakness Allergies: Coded Allergies: [place] (Verified Allergy, Unknown, 12/17/16) MORPHINE (Verified Allergy, Unknown, 12/17/16) STRAWBERRY (Verified Allergy, Unknown, 12/17/16) Uncoded Allergies: PEANUTS (Allergy, Unknown, 12/17/16) PLASTIC TAPE (Allergy, Unknown, 12/17/16) All Systems: reviewed and negative except above Subjective dialysis calm Objective Last 24 Hour Vital Signs Date Time Temp Pulse Resp B/P Pulse Ox O2 Delivery O2 Flow Rate FiO2 12/18/16 04:00 94 12/18/16 04:00 Nasal Cannula 3.0 12/18/16 04:00 97.2 98 20 131/73 98 Nasal Cannula 3.0 12/18/16 02:37 Nasal Cannula 3.0 32 12/18/16 02:36 Nasal Cannula 3.0 32 12/18/16 00:00 102 12/18/16 00:00 99.3 97 16 112/68 100 Mechanical Ventilator 12/17/16 22:53 Nasal Cannula 3.0 32 12/17/16 22:53 Nasal Cannula 3.0 32 12/17/16 21:00 98 143/73 12/17/16 20:00 98.1 93 24 143/73 100 Nasal Cannula 3.0 12/17/16 20:00 98 12/17/16 19:01 Nasal Cannula 3.0 32 12/17/16 18:58 104 18 99 Nasal Cannula 3.0 32 12/17/16 18:57 Nasal Cannula 3.0 32 12/17/16 18:57 99 Nasal Cannula 3.0 32 12/17/16 16:28 162/82 12/17/16 16:00 98.0 102 24 164/81 100 Nasal Cannula 3.0 12/17/16 16:00 102 12/17/16 13:58 98.3 98 20 162/92 98 Nasal Cannula 2.0 12/17/16 12:55 2.0 12/17/16 12:53 97.9 97 18 157/79 98 Room Air 3.0 12/17/16 12:38 97 18 157/79 98 Room Air 3.0 12/17/16 11:12 98 18 151/65 96 Room Air 12/17/16 10:38 97 30 160/79 99 Nasal Cannula 3.0 12/17/16 09:56 99/48 12/17/16 09:30 99 18 99/48 97 Nasal Cannula 3.0 12/17/16 09:04 97.9 106 18 170/81 96 Room Air Intake and Output 12/17/16 12/18/16 19:00 07:00 Intake Total 525 ml 1165.000 ml Balance 525 ml 1165.000 ml Intake Oral 200 ml 280 ml IV Total 225 ml 885.000 ml Other 100 ml # Voids 1 # Bowel Movements 1 3 Laboratory Tests 12/17/16 09:30: White Blood Count 14.4H, Red Blood Count 4.83, Hemoglobin 12.8, Hematocrit 44.8 , Mean Corpuscular Volume 93, Mean Corpuscular Hemoglobin 26.5L, Mean Corpuscular Hemoglobin Concent 28.7L, Red Cell Distribution Width 21.7H, Platelet Count 128L, Mean Platelet Volume 11.3H, Neutrophils (%) (Auto) , Lymphocytes (%) (Auto) , Monocytes (%) (Auto) , Eosinophils (%) (Auto) , Basophils (%) (Auto) , Differential Total Cells Counted 100, Neutrophils % ( Manual) 83H, Lymphocytes % (Manual) 2L, Monocytes % (Manual) 11H, Eosinophils % (Manual) 0, Basophils % (Manual) 0, Band Neutrophils 4, Platelet Estimate DecreasedL, Platelet Morphology Normal, Hypochromasia 1+, Anisocytosis 2+, Prothrombin Time 10.3, Prothromb Time International Ratio 1.0, Activated Partial Thromboplast Time 28, Sodium Level 141, Potassium Level 4.9, Chloride Level 101, Carbon Dioxide Level 21, Anion Gap 19H, Blood Urea Nitrogen 30H, Creatinine 6.5H, Estimat Glomerular Filtration Rate 7.8, Glucose Level 233H, Lactic Acid Level 1.70, Calcium Level 10.1, Total Bilirubin 0.4, Aspartate Amino Transf (AST/SGOT) 13, Alanine Aminotransferase (ALT/SGPT) 9, Alkaline Phosphatase 112H, Total Creatine Kinase 74, Creatine Kinase MB 3.0, Creatine Kinase MB Relative Index 4.0, Troponin I < 0.30, Total Protein 8.6, Albumin 4.4 , Globulin 4.2, Albumin/Globulin Ratio 1.0 12/18/16 04:00: White Blood Count 17.5H, Red Blood Count 3.63L, Hemoglobin 9.8L, Hematocrit 33.0L, Mean Corpuscular Volume 91, Mean Corpuscular Hemoglobin 26.9L, Mean Corpuscular Hemoglobin Concent 29.6L, Red Cell Distribution Width 22.2H, Platelet Count 122L, Mean Platelet Volume 10.0, Neutrophils (%) (Auto) , Lymphocytes (%) (Auto) , Monocytes (%) (Auto) , Eosinophils (%) (Auto) , Basophils (%) (Auto) , Neutrophils % (Manual) [Pending], Lymphocytes % (Manual) [Pending], Platelet Estimate [Pending], Platelet Morphology [Pending], Sodium Level 141, Potassium Level 5.2H, Chloride Level 100, Carbon Dioxide Level 21, Anion Gap 20H, Blood Urea Nitrogen 39H, Creatinine 7.5H, Estimat Glomerular Filtration Rate 6.5, Glucose Level 121#H, Calcium Level 9.1, Total Bilirubin 0.4 , Aspartate Amino Transf (AST/SGOT) 11, Alanine Aminotransferase (ALT/SGPT) 8, Alkaline Phosphatase 77, Total Protein 7.1, Albumin 3.4L, Globulin 3.7, Albumin/ Globulin Ratio 0.9L, Hemoglobin A1c [Pending], Uric Acid 5.5, Phosphorus Level 6.2H, Magnesium Level 2.2, Gamma Glutamyl Transpeptidase 39H, C-Reactive Protein , Quantitative 26.0H, Pro-B-Type Natriuretic Peptide [Pending], Triglycerides Level 67, Cholesterol Level 128, LDL Cholesterol 49L, HDL Cholesterol 66H, Cholesterol/HDL Ratio 1.9L, Thyroid Stimulating Hormone (TSH) 0.270L Height (Feet): 5 Height (Inches): 4.00 Weight (Pounds): 160 General Appearance: lethargic, confused EENT: normal ENT inspection Neck: normal alignment Cardiovascular: normal peripheral pulses, normal rate, regular rhythm Respiratory/Chest: chest wall non-tender, lungs clear, normal breath sounds Abdomen: normal bowel sounds, non tender, soft Extremities: normal inspection Edema: no edema noted Arm (L), no edema noted Arm (R), no edema noted Leg (L), no edema noted Leg (R), no edema noted Pedal (L), no edema noted Pedal (R), no edema noted Generalized Neurologic: responsive, motor weakness Skin: normal pigmentation, warm/dry CATARINA CHAU Dec 18, 2016 07:17
[2016-12-18] MEDS ORDERED: Tubing IV Secondary IV ONE (08:22)
[2016-12-18] MEDS ORDERED: NS 275ml ONE (08:22)
[2016-12-18] MEDS: Metoprolol 25mg tab ORAL SCH ×2 (09:18→20:50)
[2016-12-18] MEDS: Amiodarone 200mg tab ORAL SCH ×2 (09:20→20:47)
[2016-12-18] MEDS: Docusate 100mg cap ORAL SCH ×3 (09:20→18:00)
[2016-12-18] MEDS: Losartan 50mg tab ORAL SCH ×2 (09:22→18:21)
[2016-12-18 09:27] LABS: ANISOCYTOSIS 2+; BAND NEUTROPHILS % (MANUAL) 2 % (0-8); BASOPHILS % (MANUAL) 0 % (0-2); EOSINOPHILS % (MANUAL) 0 % (0-3); LYMPHOCYTES % (MANUAL) 7 % (20-45); NEUTROPHILS % (MANUAL) 86 % (45-75); PLATELET ESTIMATE DECREASED; TOTAL CELLS COUNTED 100
[2016-12-18 09:28] LABS: HYPOCHROMASIA 1+
[2016-12-18 09:29] LABS: POLYCHROMASIA OCCASIONAL
[2016-12-18] MEDS ORDERED: Lyrica 75mg cap ORAL PRN ×2 (09:30→13:00)
[2016-12-18] MEDS: D5 1/2NS 1,000 ML IV SCH ×2 (09:32→11:50)
--- NOTE | 2016-12-18 10:01 | Pulmonology Progress Note ---
Assessment/Plan Problems: (1) Hemoptysis (2) ESRD (end stage renal disease) (3) Hypertension (4) Diabetes (5) Leukocytosis Assessment/Plan No more hemoptysis BP stable sliding scale, insulin coverage. f/u wbc continue abx, check sputum Subjective ROS Limited/Unobtainable: No Constitutional: Reports: no symptoms HEENT: Repors: no symptoms Respiratory: Reports: no symptoms Allergies: Coded Allergies: [place] (Verified Allergy, Unknown, 12/17/16) MORPHINE (Verified Allergy, Unknown, 12/17/16) STRAWBERRY (Verified Allergy, Unknown, 12/17/16) Uncoded Allergies: PEANUTS (Allergy, Unknown, 12/17/16) PLASTIC TAPE (Allergy, Unknown, 12/17/16) Objective Last 24 Hour Vital Signs Date Time Temp Pulse Resp B/P Pulse Ox O2 Delivery O2 Flow Rate FiO2 12/18/16 09:22 111/51 12/18/16 09:19 90 111/51 12/18/16 09:18 90 111/51 12/18/16 08:00 98.2 90 20 111/51 96 Room Air 12/18/16 07:28 Nasal Cannula 3.0 12/18/16 07:27 Nasal Cannula 3.0 12/18/16 07:26 Nasal Cannula 3.0 12/18/16 07:25 98 Nasal Cannula 3.0 12/18/16 07:20 Nasal Cannula 3.0 12/18/16 07:18 97.0 99 20 153/80 97 Nasal Cannula 3.0 12/18/16 04:00 94 12/18/16 04:00 Nasal Cannula 3.0 12/18/16 04:00 97.2 98 20 131/73 98 Nasal Cannula 3.0 12/18/16 02:37 Nasal Cannula 3.0 32 12/18/16 02:36 Nasal Cannula 3.0 32 12/18/16 00:00 102 12/18/16 00:00 99.3 97 16 112/68 100 Mechanical Ventilator 12/17/16 22:53 Nasal Cannula 3.0 32 12/17/16 22:53 Nasal Cannula 3.0 32 12/17/16 21:00 98 143/73 12/17/16 20:00 98.1 93 24 143/73 100 Nasal Cannula 3.0 12/17/16 20:00 98 12/17/16 19:01 Nasal Cannula 3.0 32 12/17/16 18:58 104 18 99 Nasal Cannula 3.0 32 12/17/16 18:57 Nasal Cannula 3.0 32 12/17/16 18:57 99 Nasal Cannula 3.0 32 12/17/16 16:28 162/82 12/17/16 16:00 98.0 102 24 164/81 100 Nasal Cannula 3.0 12/17/16 16:00 102 12/17/16 13:58 98.3 98 20 162/92 98 Nasal Cannula 2.0 12/17/16 12:55 2.0 12/17/16 12:53 97.9 97 18 157/79 98 Room Air 3.0 12/17/16 12:38 97 18 157/79 98 Room Air 3.0 12/17/16 11:12 98 18 151/65 96 Room Air 12/17/16 10:38 97 30 160/79 99 Nasal Cannula 3.0 Intake and Output 12/17/16 12/18/16 19:00 07:00 Intake Total 525 ml 1265.000 ml Output Total 0 ml Balance 525 ml 1265.000 ml Intake Oral 200 ml 280 ml IV Total 225 ml 985.000 ml Other 100 ml Output Stool Total 0 ml # Voids 1 # Bowel Movements 1 3 General Appearance: WD/WN HEENT: normocephalic, atraumatic Respiratory/Chest: chest wall non-tender, lungs clear Cardiovascular: normal peripheral pulses, normal rate Abdomen: normal bowel sounds, no organomegaly Genitourinary: normal external genitalia Extremities: no cyanosis Skin: no lesions Neurologic/Psychiatric: steam box hand II-XII grossly normal, abnormal gait Laboratory Tests 12/18/16 04:00: White Blood Count 17.5H, Red Blood Count 3.63L, Hemoglobin 9.8L, Hematocrit 33.0L, Mean Corpuscular Volume 91, Mean Corpuscular Hemoglobin 26.9L, Mean Corpuscular Hemoglobin Concent 29.6L, Red Cell Distribution Width 22.2H, Platelet Count 122L, Mean Platelet Volume 10.0, Neutrophils (%) (Auto) , Lymphocytes (%) (Auto) , Monocytes (%) (Auto) , Eosinophils (%) (Auto) , Basophils (%) (Auto) , Differential Total Cells Counted 100, Neutrophils % ( Manual) 86H, Lymphocytes % (Manual) 7L, Monocytes % (Manual) 5, Eosinophils % ( Manual) 0, Basophils % (Manual) 0, Band Neutrophils 2, Platelet Estimate DecreasedL, Platelet Morphology , Giant Platelets Occasional, Polychromasia Occasional, Hypochromasia 1+, Anisocytosis 2+, Sodium Level 141, Potassium Level 5.2H, Chloride Level 100, Carbon Dioxide Level 21, Anion Gap 20H, Blood Urea Nitrogen 39H, Creatinine 7.5H, Estimat Glomerular Filtration Rate 6.5, Glucose Level 121#H, Hemoglobin A1c 5.0, Uric Acid 5.5, Calcium Level 9.1, Phosphorus Level 6.2H, Magnesium Level 2.2, Total Bilirubin 0.4, Gamma Glutamyl Transpeptidase 39H, Aspartate Amino Transf (AST/SGOT) 11, Alanine Aminotransferase (ALT/SGPT) 8, Alkaline Phosphatase 77, C-Reactive Protein, Quantitative 26.0H, Pro-B-Type Natriuretic Peptide > 80014R, Total Protein 7.1, Albumin 3.4L, Globulin 3.7, Albumin/Globulin Ratio 0.9L, Triglycerides Level 67 , Cholesterol Level 128, LDL Cholesterol 49L, HDL Cholesterol 66H, Cholesterol/ HDL Ratio 1.9L, Thyroid Stimulating Hormone (TSH) 0.270L Current Medications Medications (Trade) Dose Ordered Sig/Gretchen Route PRN Reason Start Time Stop Time Status Last Admin Dose Admin Acetaminophen (Tylenol) 650 mg Q4H PRN ORAL fever 12/17/16 15:30 01/16/17 15:29 Al Hydroxide/Mg Hydroxide (Mylanta II) 30 ml Q6H PRN ORAL dyspepsia 12/17/16 15:30 01/16/17 15:29 Albuterol/ Ipratropium (DuoNeb 0.5-3(2.5)mg/3ml) 3 ml Q6HRT PRN HHN dyspnea 12/17/16 15:30 12/22/16 15:29 Amiodarone HCl (Cordarone) 200 mg EVERY 12 HOURS ORAL 12/17/16 21:00 01/16/17 20:59 12/18/16 09:20 Amlodipine Besylate (Norvasc) 10 mg DAILY ORAL 12/18/16 09:00 01/17/17 08:59 12/18/16 09:19 Ceftazidime/ Dextrose (Fortaz/D5W) 55 ml @ 110 mls/hr POSTHD IV 12/18/16 06:00 12/25/16 05:59 Clonidine HCl (Catapres) 0.1 mg Q4H PRN ORAL For High Blood Pressure 12/17/16 15:30 01/16/17 15:29 Dextrose (Dextrose 50%) STAT PRN IV Hypoglycemia 12/17/16 15:30 01/16/17 15:29 Dextrose/Sodium Chloride (D5 0.45% NS) 1,000 ml @ 50 mls/hr Q20H IV 12/17/16 13:30 01/16/17 13:29 12/18/16 09:32 Docusate Sodium 100 mg 100 mg THREE TIMES A DAY ORAL 12/17/16 18:00 01/16/17 17:59 12/18/16 09:20 Insulin Aspart (NovoLOG) BEFORE MEALS AND HS SUBQ 12/17/16 16:30 01/16/17 16:29 12/18/16 05:29 Losartan Potassium (Cozaar) 50 mg BID ORAL 12/17/16 18:00 01/16/17 17:59 12/18/16 09:22 Metoprolol Tartrate (Lopressor) 25 mg EVERY 12 HOURS ORAL 12/17/16 21:00 01/16/17 20:59 12/18/16 09:18 Ondansetron HCl (Zofran) 4 mg Q6H PRN IVP Nausea & Vomiting 12/17/16 15:30 01/16/17 15:29 Pantoprazole (Protonix) 40 mg DAILY ORAL 12/17/16 13:30 01/16/17 13:29 12/18/16 09:19 Polyethylene Glycol (Miralax) 17 gm HSPRN PRN ORAL Constipation 12/17/16 15:30 01/16/17 15:29 Pregabalin (Lyrica) 75 mg THREE TIMES A DAY PRN ORAL Severe Pain (Pain Scale 7-10) 12/18/16 09:30 01/17/17 09:29 Sevelamer Carbonate 800 mg 800 mg THREE TIMES A DAY ORAL 12/17/16 18:00 01/16/17 17:59 12/17/16 16:27 Vancomycin HCl 500 mg/Dextrose 110 ml @ 110 mls/hr POSTHD IVPB 12/17/16 18:30 12/22/16 18:29 Zolpidem Tartrate (Ambien) 5 mg HSPRN PRN ORAL Insomnia 12/17/16 15:30 01/16/17 15:29 MILO CRAMER Dec 18, 2016 10:01
[2016-12-18] MEDS ORDERED: DuoNeb 0.5-3(2.5)mg/3ml neb HHN PRN (13:00)
--- NOTE | 2016-12-18 14:44 | General Progress Note ---
Assessment/Plan Assessment/Plan GI: Plan Problems: (1) Abdominal pain (2) Alkaline phosphatase elevation (3) Hemoptysis Plan symptomatic treatment at this time zofran prn monitor H&H, transfuse prn ppi bowel regime fu labs outpatient GI procedures Subjective Allergies: Coded Allergies: [place] (Verified Allergy, Unknown, 12/17/16) MORPHINE (Verified Allergy, Unknown, 12/17/16) [place]Y (Verified Allergy, Unknown, 12/17/16) Uncoded Allergies: PEANUTS (Allergy, Unknown, 12/17/16) PLASTIC TAPE (Allergy, Unknown, 12/17/16) Subjective patient feels well today no abd pain tolerating PO Objective Last 24 Hour Vital Signs Date Time Temp Pulse Resp B/P Pulse Ox O2 Delivery O2 Flow Rate FiO2 12/18/16 12:00 97.8 76 18 115/68 96 Room Air 12/18/16 11:23 Nasal Cannula 3.0 12/18/16 11:22 Nasal Cannula 3.0 12/18/16 09:22 111/51 12/18/16 09:19 90 111/51 12/18/16 09:18 90 111/51 12/18/16 08:00 98.2 90 20 111/51 96 Room Air 12/18/16 08:00 90 12/18/16 07:28 Nasal Cannula 3.0 12/18/16 07:27 Nasal Cannula 3.0 12/18/16 07:26 Nasal Cannula 3.0 12/18/16 07:25 98 Nasal Cannula 3.0 12/18/16 07:20 Nasal Cannula 3.0 12/18/16 07:18 97.0 99 20 153/80 97 Nasal Cannula 3.0 12/18/16 04:00 94 12/18/16 04:00 Nasal Cannula 3.0 12/18/16 04:00 97.2 98 20 131/73 98 Nasal Cannula 3.0 12/18/16 02:37 Nasal Cannula 3.0 32 12/18/16 02:36 Nasal Cannula 3.0 32 12/18/16 00:00 102 12/18/16 00:00 99.3 97 16 112/68 100 Mechanical Ventilator 12/17/16 22:53 Nasal Cannula 3.0 32 12/17/16 22:53 Nasal Cannula 3.0 32 12/17/16 21:00 98 143/73 12/17/16 20:00 98.1 93 24 143/73 100 Nasal Cannula 3.0 12/17/16 20:00 98 12/17/16 19:01 Nasal Cannula 3.0 32 12/17/16 18:58 104 18 99 Nasal Cannula 3.0 32 12/17/16 18:57 Nasal Cannula 3.0 32 12/17/16 18:57 99 Nasal Cannula 3.0 32 12/17/16 16:28 162/82 12/17/16 16:00 98.0 102 24 164/81 100 Nasal Cannula 3.0 12/17/16 16:00 102 Intake and Output 12/17/16 12/18/16 19:00 07:00 Intake Total 525 ml 1265.000 ml Output Total 0 ml Balance 525 ml 1265.000 ml Intake Oral 200 ml 280 ml IV Total 225 ml 985.000 ml Other 100 ml Output Stool Total 0 ml # Voids 1 # Bowel Movements 1 3 Laboratory Tests 12/18/16 04:00: White Blood Count 17.5H, Red Blood Count 3.63L, Hemoglobin 9.8L, Hematocrit 33.0L, Mean Corpuscular Volume 91, Mean Corpuscular Hemoglobin 26.9L, Mean Corpuscular Hemoglobin Concent 29.6L, Red Cell Distribution Width 22.2H, Platelet Count 122L, Mean Platelet Volume 10.0, Neutrophils (%) (Auto) , Lymphocytes (%) (Auto) , Monocytes (%) (Auto) , Eosinophils (%) (Auto) , Basophils (%) (Auto) , Differential Total Cells Counted 100, Neutrophils % ( Manual) 86H, Lymphocytes % (Manual) 7L, Monocytes % (Manual) 5, Eosinophils % ( Manual) 0, Basophils % (Manual) 0, Band Neutrophils 2, Platelet Estimate DecreasedL, Platelet Morphology , Giant Platelets Occasional, Polychromasia Occasional, Hypochromasia 1+, Anisocytosis 2+, Sodium Level 141, Potassium Level 5.2H, Chloride Level 100, Carbon Dioxide Level 21, Anion Gap 20H, Blood Urea Nitrogen 39H, Creatinine 7.5H, Estimat Glomerular Filtration Rate 6.5, Glucose Level 121#H, Hemoglobin A1c 5.0, Uric Acid 5.5, Calcium Level 9.1, Phosphorus Level 6.2H, Magnesium Level 2.2, Total Bilirubin 0.4, Gamma Glutamyl Transpeptidase 39H, Aspartate Amino Transf (AST/SGOT) 11, Alanine Aminotransferase (ALT/SGPT) 8, Alkaline Phosphatase 77, C-Reactive Protein, Quantitative 26.0H, Pro-B-Type Natriuretic Peptide > 02492P, Total Protein 7.1, Albumin 3.4L, Globulin 3.7, Albumin/Globulin Ratio 0.9L, Triglycerides Level 67 , Cholesterol Level 128, LDL Cholesterol 49L, HDL Cholesterol 66H, Cholesterol/ HDL Ratio 1.9L, Thyroid Stimulating Hormone (TSH) 0.270L Height (Feet): 5 Height (Inches): 4.00 Weight (Pounds): 160 PITO RIZO Dec 18, 2016 14:44
[2016-12-18] MEDS ORDERED: Miralax 17gm pkt ORAL PRN (15:30)
[2016-12-18] MEDS ORDERED: Mylanta II UD 30ml ORAL PRN (15:30)
[2016-12-18] MEDS ORDERED: Zolpidem 5mg tab ORAL PRN (15:30)
[2016-12-18] MEDS ORDERED: Vancomycin 500 MG in D5W 110 ML IVPB SCH (18:30)
[2016-12-19] VITALS: BP 112/74
[2016-12-19 04:00] VITALS: BP 109/76
[2016-12-19] MEDS: NovoLOG Insulin Flexpen SUBQ SCH ×4 (06:17→21:47)
--- NOTE | 2016-12-19 06:53 | General Progress Note ---
Assessment/Plan Problem List: (1) HTN (hypertension) ICD Codes: I10 - Essential (primary) hypertension SNOMED: 24407128 (2) CHF (congestive heart failure) ICD Codes: I50.9 - Heart failure, unspecified SNOMED: 01977449 (3) Diabetes ICD Codes: E11.9 - Type 2 diabetes mellitus without complications SNOMED: 62477453 (4) Leukocytosis ICD Codes: D72.829 - Elevated white blood cell count, unspecified SNOMED: 942383433, 007459314 (5) Anemia ICD Codes: D64.9 - Anemia, unspecified SNOMED: 433380182 (6) ESRD (end stage renal disease) ICD Codes: N18.6 - End stage renal disease SNOMED: 42795023 (7) Hypertension ICD Codes: I10 - Essential (primary) hypertension SNOMED: 52477896 (8) Hemoptysis ICD Codes: R04.2 - Hemoptysis SNOMED: 97061802 (9) Abdominal pain ICD Codes: R10.9 - Unspecified abdominal pain SNOMED: 57141284 Status: stable, progressing, tolerating diet Assessment/Plan ot pt diet abx dialysis cbc bmp am promise ltach eval Subjective Constitutional: Reports: weakness Allergies: Coded Allergies: [place] (Verified Allergy, Unknown, 12/17/16) MORPHINE (Verified Allergy, Unknown, 12/17/16) [place] (Verified Allergy, Unknown, 12/17/16) Uncoded Allergies: PEANUTS (Allergy, Unknown, 12/17/16) PLASTIC TAPE (Allergy, Unknown, 12/17/16) All Systems: reviewed and negative except above Subjective sleepy calm Objective Last 24 Hour Vital Signs Date Time Temp Pulse Resp B/P Pulse Ox O2 Delivery O2 Flow Rate FiO2 12/19/16 04:00 97.8 101 18 109/76 92 Room Air 12/19/16 03:09 Room Air 12/19/16 03:09 Room Air 12/19/16 00:00 97.9 103 18 112/74 91 Room Air 12/18/16 23:39 Room Air 12/18/16 23:38 Room Air 12/18/16 20:50 99 122/61 12/18/16 20:00 99.1 99 22 122/61 95 Room Air 12/18/16 19:43 95 Room Air 12/18/16 19:43 Room Air 12/18/16 19:20 96 18 96 Room Air 12/18/16 19:15 96 20 96 Room Air 12/18/16 18:36 97 Room Air 12/18/16 18:21 135/65 12/18/16 16:00 98.4 84 22 135/65 91 Room Air 12/18/16 15:45 89 18 97 Nasal Cannula 3.0 12/18/16 15:41 86 20 96 Nasal Cannula 3.0 12/18/16 12:00 97.8 76 18 115/68 96 Room Air 12/18/16 11:23 Nasal Cannula 3.0 12/18/16 11:22 Nasal Cannula 3.0 12/18/16 09:22 111/51 12/18/16 09:19 90 111/51 12/18/16 09:18 90 111/51 12/18/16 08:00 98.2 90 20 111/51 96 Room Air 12/18/16 08:00 90 12/18/16 07:28 Nasal Cannula 3.0 12/18/16 07:27 Nasal Cannula 3.0 12/18/16 07:26 Nasal Cannula 3.0 12/18/16 07:25 98 Nasal Cannula 3.0 12/18/16 07:20 Nasal Cannula 3.0 12/18/16 07:18 97.0 99 20 153/80 97 Nasal Cannula 3.0 Intake and Output 12/18/16 12/19/16 19:00 07:00 Intake Total 490 ml 840 ml Output Total 2100 ml 0 ml Balance -1610 ml 840 ml Intake Oral 240 ml 440 ml IV Total 250 ml 400 ml Output Stool Total 0 ml Hemodialysis UF 2100 ml # Voids 1 # Bowel Movements 2 Laboratory Tests 12/19/16 05:35: White Blood Count [Pending], Red Blood Count [Pending], Hemoglobin [Pending], Hematocrit [Pending], Mean Corpuscular Volume [Pending], Mean Corpuscular Hemoglobin [Pending], Mean Corpuscular Hemoglobin Concent [Pending], Red Cell Distribution Width [Pending], Platelet Count [Pending], Mean Platelet Volume [ Pending], Neutrophils (%) (Auto) [Pending], Lymphocytes (%) (Auto) [Pending], Monocytes (%) (Auto) [Pending], Eosinophils (%) (Auto) [Pending], Basophils (%) (Auto) [Pending], Sodium Level [Pending], Potassium Level [Pending], Chloride Level [Pending], Carbon Dioxide Level [Pending], Blood Urea Nitrogen [Pending], Creatinine [Pending], Estimat Glomerular Filtration Rate [Pending], Glucose Level [Pending], Calcium Level [Pending] Height (Feet): 5 Height (Inches): 4.00 Weight (Pounds): 160 General Appearance: lethargic EENT: normal ENT inspection Neck: normal alignment Cardiovascular: normal peripheral pulses, normal rate, regular rhythm Respiratory/Chest: chest wall non-tender, lungs clear, normal breath sounds Abdomen: normal bowel sounds, non tender, soft Extremities: normal inspection Edema: no edema noted Arm (L), no edema noted Arm (R), no edema noted Leg (L), no edema noted Leg (R), no edema noted Pedal (L), no edema noted Pedal (R), no edema noted Generalized Neurologic: motor weakness Skin: normal pigmentation, warm/dry CATARINA CHAU Dec 19, 2016 06:53
[2016-12-19 06:56] LABS: BASOPHILS % (AUTO) 0.2 % (0.0-2.0); LYMPHOCYTES % (AUTO) 8.1 % (20.0-45.0); MEAN CORPUSCULAR HEMOGLOBIN 27.6 PG (27.0-31.0); MEAN CORPUSCULAR HGB CONC 30.3 G/DL (32.0-36.0); MEAN CORPUSCULAR VOLUME 91 FL (80-99); MONOCYTES % (AUTO) 8.2 % (1.0-10.0); NEUTROPHILS % (AUTO) 81.5 % (45.0-75.0); PLATELET COUNT 122 K/UL (150-450); RED BLOOD COUNT 3.49 M/UL (4.20-5.40); RED CELL DISTRIBUTION WIDTH 21.3 % (11.6-14.8)
[2016-12-19 07:06] LABS: CALCIUM 9.5 mg/dL (8.6-10.2); CREATININE 6.6 mg/dL (0.5-0.9); GLOMERULAR FILTRATION RATE 7.6 mL/min (>60); POTASSIUM 3.8 mEQ/L (3.4-4.9)
[2016-12-19 08:00] VITALS: BP 116/79
[2016-12-19] MEDS: D5 1/2NS 1,000 ML IV SCH ×2 (08:00→23:43)
[2016-12-19] MEDS: Docusate 100mg cap ORAL SCH ×3 (09:00→18:00)
[2016-12-19] MEDS: Metoprolol 25mg tab ORAL SCH ×2 (09:00→21:42)
[2016-12-19] MEDS: Losartan 50mg tab ORAL SCH ×2 (09:00→18:36)
[2016-12-19] MEDS: Amiodarone 200mg tab ORAL SCH ×2 (10:12→21:42)
--- NOTE | 2016-12-19 10:55 | General Progress Note ---
Assessment/Plan Assessment/Plan GI: Plan Problems: (1) Abdominal pain (2) Alkaline phosphatase elevation (3) Hemoptysis Plan symptomatic treatment at this time zofran prn monitor H&H, transfuse prn ppi bowel regime fu labs outpatient GI procedures Subjective Allergies: Coded Allergies: [place] (Verified Allergy, Unknown, 12/17/16) MORPHINE (Verified Allergy, Unknown, 12/17/16) STRAWBERRY (Verified Allergy, Unknown, 12/17/16) Uncoded Allergies: PEANUTS (Allergy, Unknown, 12/17/16) PLASTIC TAPE (Allergy, Unknown, 12/17/16) Subjective patient feels well today no abd pain tolerating PO Objective Last 24 Hour Vital Signs Date Time Temp Pulse Resp B/P Pulse Ox O2 Delivery O2 Flow Rate FiO2 12/19/16 10:11 101 116/79 12/19/16 09:00 101 116/79 12/19/16 09:00 116/79 12/19/16 08:00 97.3 101 20 116/79 94 Room Air 12/19/16 07:23 94 Room Air 12/19/16 07:23 Room Air 12/19/16 07:00 Room Air 12/19/16 07:00 Room Air 12/19/16 04:00 97.8 101 18 109/76 92 Room Air 12/19/16 03:09 Room Air 12/19/16 03:09 Room Air 12/19/16 00:00 97.9 103 18 112/74 91 Room Air 12/18/16 23:39 Room Air 12/18/16 23:38 Room Air 12/18/16 20:50 99 122/61 12/18/16 20:00 99.1 99 22 122/61 95 Room Air 12/18/16 19:43 95 Room Air 12/18/16 19:43 Room Air 12/18/16 19:20 96 18 96 Room Air 12/18/16 19:15 96 20 96 Room Air 12/18/16 18:36 97 Room Air 12/18/16 18:21 135/65 12/18/16 16:00 98.4 84 22 135/65 91 Room Air 12/18/16 15:45 89 18 97 Nasal Cannula 3.0 12/18/16 15:41 86 20 96 Nasal Cannula 3.0 12/18/16 12:00 97.8 76 18 115/68 96 Room Air 12/18/16 11:23 Nasal Cannula 3.0 12/18/16 11:22 Nasal Cannula 3.0 Intake and Output 12/18/16 12/19/16 19:00 07:00 Intake Total 490 ml 840 ml Output Total 2100 ml 10 ml Balance -1610 ml 830 ml Intake Oral 240 ml 440 ml IV Total 250 ml 400 ml Output Stool Total 10 ml Hemodialysis UF 2100 ml # Voids 1 # Bowel Movements 2 Laboratory Tests 12/19/16 05:35: White Blood Count 12.0H, Red Blood Count 3.49L, Hemoglobin 9.6L, Hematocrit 31.8L, Mean Corpuscular Volume 91, Mean Corpuscular Hemoglobin 27.6, Mean Corpuscular Hemoglobin Concent 30.3L, Red Cell Distribution Width 21.3H, Platelet Count 122L, Mean Platelet Volume 11.0H, Neutrophils (%) (Auto) 81.5H, Lymphocytes (%) (Auto) 8.1L, Monocytes (%) (Auto) 8.2, Eosinophils (%) (Auto) 2.0, Basophils (%) (Auto) 0.2, Sodium Level 141, Potassium Level 3.8, Chloride Level 97L, Carbon Dioxide Level 23, Anion Gap 21H, Blood Urea Nitrogen 32H, Creatinine 6.6H, Estimat Glomerular Filtration Rate 7.6, Glucose Level 103, Calcium Level 9.5 Height (Feet): 5 Height (Inches): 4.00 Weight (Pounds): 160 SALLIEPITO Dec 19, 2016 10:55
[2016-12-19 12:00] VITALS: BP 158/86
--- NOTE | 2016-12-19 14:15 | General Progress Note ---
Assessment/Plan Status: stable Assessment/Plan ESRD- HD 12/18 done- HTN DM Hemoptysis vs bloody vomitus plan: HD in am- 12/20 NPO- Per pulm and GI Med adjustment per orders Subjective ROS Limited/Unobtainable: No Constitutional: Reports: malaise Allergies: Coded Allergies: [place] (Verified Allergy, Unknown, 12/17/16) MORPHINE (Verified Allergy, Unknown, 12/17/16) STRAW[place]ERRY (Verified Allergy, Unknown, 12/17/16) Uncoded Allergies: PEANUTS (Allergy, Unknown, 12/17/16) PLASTIC TAPE (Allergy, Unknown, 12/17/16) Objective Last 24 Hour Vital Signs Date Time Temp Pulse Resp B/P Pulse Ox O2 Delivery O2 Flow Rate FiO2 12/19/16 12:00 97.3 95 18 158/86 95 Room Air 12/19/16 11:00 98 18 97 Room Air 12/19/16 10:55 98 20 97 Room Air 12/19/16 10:11 101 116/79 12/19/16 09:00 101 116/79 12/19/16 09:00 116/79 12/19/16 08:00 97.3 101 20 116/79 94 Room Air 12/19/16 07:23 94 Room Air 12/19/16 07:23 Room Air 12/19/16 07:00 Room Air 12/19/16 07:00 Room Air 12/19/16 04:00 97.8 101 18 109/76 92 Room Air 12/19/16 03:09 Room Air 12/19/16 03:09 Room Air 12/19/16 00:00 97.9 103 18 112/74 91 Room Air 12/18/16 23:39 Room Air 12/18/16 23:38 Room Air 12/18/16 20:50 99 122/61 12/18/16 20:00 99.1 99 22 122/61 95 Room Air 12/18/16 19:43 95 Room Air 12/18/16 19:43 Room Air 12/18/16 19:20 96 18 96 Room Air 12/18/16 19:15 96 20 96 Room Air 12/18/16 18:36 97 Room Air 12/18/16 18:21 135/65 12/18/16 16:00 98.4 84 22 135/65 91 Room Air 12/18/16 15:45 89 18 97 Nasal Cannula 3.0 12/18/16 15:41 86 20 96 Nasal Cannula 3.0 Intake and Output 12/18/16 12/19/16 19:00 07:00 Intake Total 490 ml 840 ml Output Total 2100 ml 10 ml Balance -1610 ml 830 ml Intake Oral 240 ml 440 ml IV Total 250 ml 400 ml Output Stool Total 10 ml Hemodialysis UF 2100 ml # Voids 1 # Bowel Movements 2 Laboratory Tests 12/19/16 05:35: White Blood Count 12.0H, Red Blood Count 3.49L, Hemoglobin 9.6L, Hematocrit 31.8L, Mean Corpuscular Volume 91, Mean Corpuscular Hemoglobin 27.6, Mean Corpuscular Hemoglobin Concent 30.3L, Red Cell Distribution Width 21.3H, Platelet Count 122L, Mean Platelet Volume 11.0H, Neutrophils (%) (Auto) 81.5H, Lymphocytes (%) (Auto) 8.1L, Monocytes (%) (Auto) 8.2, Eosinophils (%) (Auto) 2.0, Basophils (%) (Auto) 0.2, Sodium Level 141, Potassium Level 3.8, Chloride Level 97L, Carbon Dioxide Level 23, Anion Gap 21H, Blood Urea Nitrogen 32H, Creatinine 6.6H, Estimat Glomerular Filtration Rate 7.6, Glucose Level 103, Calcium Level 9.5 Height (Feet): 5 Height (Inches): 4.00 Weight (Pounds): 160 General Appearance: no apparent distress Respiratory/Chest: lungs clear Abdomen: soft Objective no change in PE NIALL HOLDER Dec 19, 2016 14:14
--- NOTE | 2016-12-19 14:47 | Infectious Diseases Prog Note ---
Assessment/Plan Problems: (1) Interstitial lung disease Assessment & Plan: suspect pneumonia, continue vancomycin and cefepime , await cultures (2) Hemoptysis Assessment & Plan: suspect due to above , further eval and management as per scrap cutter (3) Diabetes Assessment & Plan: recommend tight glycemic control to keep blood glucose between 80-120 (4) ESRD (end stage renal disease) Assessment & Plan: on HD ,renal is following (5) Skin ulcer of right foot Assessment & Plan: recommend paper conservator eval, will order X ray 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 & Plan: keep in contact isolation Subjective Constitutional: Reports: fatigue Respiratory: Reports: productive cough Gastrointestinal/Abdominal: Reports: bloating, constipation Neurologic: Reports: weakness Skin: Reports: ulcer Allergies: Coded Allergies: [place] (Verified Allergy, Unknown, 12/17/16) MORPHINE (Verified Allergy, Unknown, 12/17/16) STRAWBERRY (Verified Allergy, Unknown, 12/17/16) Uncoded Allergies: PEANUTS (Allergy, Unknown, 12/17/16) PLASTIC TAPE (Allergy, Unknown, 12/17/16) Objective Vital Signs Last 24 Hour Vital Signs Date Time Temp Pulse Resp B/P Pulse Ox O2 Delivery O2 Flow Rate FiO2 12/19/16 12:00 97.3 95 18 158/86 95 Room Air 12/19/16 11:00 98 18 97 Room Air 12/19/16 10:55 98 20 97 Room Air 12/19/16 10:11 101 116/79 12/19/16 09:00 101 116/79 12/19/16 09:00 116/79 12/19/16 08:00 97.3 101 20 116/79 94 Room Air 12/19/16 07:23 94 Room Air 12/19/16 07:23 Room Air 12/19/16 07:00 Room Air 12/19/16 07:00 Room Air 12/19/16 04:00 97.8 101 18 109/76 92 Room Air 12/19/16 03:09 Room Air 12/19/16 03:09 Room Air 12/19/16 00:00 97.9 103 18 112/74 91 Room Air 12/18/16 23:39 Room Air 12/18/16 23:38 Room Air 12/18/16 20:50 99 122/61 12/18/16 20:00 99.1 99 22 122/61 95 Room Air 12/18/16 19:43 95 Room Air 12/18/16 19:43 Room Air 12/18/16 19:20 96 18 96 Room Air 12/18/16 19:15 96 20 96 Room Air 12/18/16 18:36 97 Room Air 12/18/16 18:21 135/65 12/18/16 16:00 98.4 84 22 135/65 91 Room Air 12/18/16 15:45 89 18 97 Nasal Cannula 3.0 12/18/16 15:41 86 20 96 Nasal Cannula 3.0 Height (Feet): 5 Height (Inches): 4.00 Weight (Pounds): 160 General Appearance: WD/WN, no acute distress HEENT: normocephalic, atraumatic, anicteric, mucous membranes moist Respiratory/Chest: chest wall non-tender, normal breath sounds, no respiratory distress, no accessory muscle use, decreased breath sounds Cardiovascular: normal peripheral pulses, normal rate, regular rhythm, no gallop/murmur Abdomen: normal bowel sounds, soft, non tender, no organomegaly, non distended , no mass, no scars Extremities: no cyanosis, no clubbing, other - right foot amputated toes with skin hyperkeratosis and over growth Skin: no rash, no lesions Microbiology Date/Time Source Procedure Growth Status 12/17/16 09:30 Blood Blood Culture - Preliminary NO GROWTH AFTER 24 HOURS Resulted 12/17/16 09:30 Blood Blood Culture - Preliminary NO GROWTH AFTER 24 HOURS Resulted 12/17/16 10:30 Nasal Nares MRSA Culture - Final NO METHICILLIN RESISTANT STAPH AUREUS... Complete 12/17/16 10:30 Rectum VRE Culture - Final Enterococcus Faecalis - Vre Complete Laboratory Tests Test 12/19/16 05:35 White Blood Count 12.0 K/UL (4.8-10.8) H Red Blood Count 3.49 M/UL (4.20-5.40) L Hemoglobin 9.6 G/DL (12.0-16.0) L Hematocrit 31.8 % (37.0-47.0) L Mean Corpuscular Volume 91 FL (80-99) Mean Corpuscular Hemoglobin 27.6 PG (27.0-31.0) Mean Corpuscular Hemoglobin Concent 30.3 G/DL (32.0-36.0) L Red Cell Distribution Width 21.3 % (11.6-14.8) H Platelet Count 122 K/UL (150-450) L Mean Platelet Volume 11.0 FL (6.5-10.1) H Neutrophils (%) (Auto) 81.5 % (45.0-75.0) H Lymphocytes (%) (Auto) 8.1 % (20.0-45.0) L Monocytes (%) (Auto) 8.2 % (1.0-10.0) Eosinophils (%) (Auto) 2.0 % (0.0-3.0) Basophils (%) (Auto) 0.2 % (0.0-2.0) Sodium Level 141 mEQ/L (135-145) Potassium Level 3.8 mEQ/L (3.4-4.9) Chloride Level 97 mEQ/L (98-107) L Carbon Dioxide Level 23 mEQ/L (20-30) Anion Gap 21 (5-15) H Blood Urea Nitrogen 32 mg/dL (7-23) H Creatinine 6.6 mg/dL (0.5-0.9) H Estimat Glomerular Filtration Rate 7.6 mL/min (>60) Glucose Level 103 mg/dL (74-106) Calcium Level 9.5 mg/dL (8.6-10.2) Current Medications Medications (Trade) Dose Ordered Sig/Gretchen Route PRN Reason Start Time Stop Time Status Last Admin Dose Admin Acetaminophen (Tylenol) 650 mg Q4H PRN ORAL fever 12/18/16 11:30 01/17/17 11:29 Al Hydroxide/Mg Hydroxide (Mylanta II) 30 ml Q6H PRN ORAL dyspepsia 12/18/16 15:30 01/17/17 15:29 Albuterol/ Ipratropium (DuoNeb 0.5-3(2.5)mg/3ml) 3 ml Q6HRT PRN HHN dyspnea 12/18/16 13:00 12/23/16 12:59 Amiodarone HCl (Cordarone) 200 mg EVERY 12 HOURS ORAL 12/18/16 21:00 01/17/17 20:59 12/19/16 10:12 Amlodipine Besylate (Norvasc) 10 mg DAILY ORAL 12/19/16 09:00 01/18/17 08:59 12/19/16 10:11 Ceftazidime 1 gm/ Dextrose 55 ml @ 110 mls/hr POSTHD IV 12/18/16 18:00 12/25/16 17:59 Clonidine HCl (Catapres) 0.1 mg Q4H PRN ORAL For High Blood Pressure 12/18/16 11:30 01/17/17 11:29 Dextrose (Dextrose 50%) STAT PRN IV Hypoglycemia 12/18/16 15:30 01/17/17 15:29 Dextrose/Sodium Chloride 1,000 ml @ 50 mls/hr Q20H IV 12/18/16 12:00 01/17/17 11:59 12/18/16 11:50 Docusate Sodium (Colace) 100 mg THREE TIMES A DAY ORAL 12/18/16 13:00 01/17/17 12:59 Insulin Aspart (NovoLOG) BEFORE MEALS AND HS SUBQ 12/18/16 11:30 01/17/17 11:29 12/19/16 13:59 Losartan Potassium (Cozaar) 50 mg BID ORAL 12/18/16 18:00 01/17/17 17:59 12/18/16 18:21 Metoprolol Tartrate (Lopressor) 25 mg EVERY 12 HOURS ORAL 12/18/16 21:00 01/17/17 20:59 Ondansetron HCl (Zofran) 4 mg Q6H PRN IVP Nausea & Vomiting 12/18/16 15:30 01/17/17 15:29 Pantoprazole (Protonix) 40 mg DAILY ORAL 12/19/16 09:00 01/18/17 08:59 12/19/16 10:15 Polyethylene Glycol (Miralax) 17 gm HSPRN PRN ORAL Constipation 12/18/16 15:30 01/17/17 15:29 Pregabalin (Lyrica) 75 mg THREE TIMES A DAY PRN ORAL Severe Pain (Pain Scale 7-10) 12/18/16 13:00 01/17/17 12:59 Sevelamer Carbonate (Renvela) 800 mg THREE TIMES A DAY ORAL 12/18/16 13:00 01/17/17 12:59 Vancomycin HCl/ Dextrose (Vancomycin/D5W) 110 ml @ 110 mls/hr POSTHD IVPB 12/18/16 18:30 12/23/16 18:29 Zolpidem Tartrate (Ambien) 5 mg HSPRN PRN ORAL Insomnia 12/18/16 15:30 01/17/17 15:29 Ajay Garcia M.D. Dec 19, 2016 14:47
[2016-12-19 16:00] VITALS: BP 132/78
[2016-12-19 19:00] VITALS: BP 133/84
--- NOTE | 2016-12-19 20:58 | Consultation ---
DATE OF CONSULTATION: 12/18/2016 NOTE: POOR AUDIO PSYCHOTHERAPY CONSULTATION PROGRESS NOTE: CONSULTING PHYSICIAN: Art Murry M.D. TREATING ATTENDING PHYSICIAN: Dheeraj Barriga D.O. HISTORY OF PRESENT ILLNESS: The patient is a 66-year-old female. The patient was in a nursing facility at nursing facility. The patient was admitted to the hospital for end-stage renal disease, and evaluation asked by us. The patient has a history of . The patient is confused, disorganized, and altered mental status. She is oriented to presently at times. She is forgetful with , however, she is unable to time. Denies suicidal or homicidal ideation. Denies audio or visual hallucinations. The patient has confusion because of changes in altered mental status. She has requested for psychotherapy stress. PAST MEDICAL HISTORY: Includes a history of CHF, ESRD, and lethargy. ALLERGIES: The patient is allergic to morphine and . PAST PSYCHIATRIC HISTORY: The patient has a history of contusion. SOCIAL HISTORY: The patient is a 66-year-old female, financially sustained through Medicare and [employer]. MENTAL STATUS EXAMINATION: The patient is alert and oriented x2 to person and place. Her mood is depressed. Affect is blunted. Thought process is disorganized. The patient has poor attention and concentration. Poor insight, judgment, and impulse control. DIAGNOSES: [place] I depressive disorder Norwood II Deferred. Norwood III Per History and Physical. PLAN: This clinician assessed the patient and provided the patient with reality orientation, supportive psychotherapy. Encouraging the patient to participate in treatment as well positive communication skills. Continue with medication management and behavioral management. This clinician has reviewed the patient's chart. Discussed the treatment with nursing staff. Art Murry PsyD. : ADORE JOB#: [id number] CC:
[2016-12-19] MEDS: Donepezil 5mg Tab ORAL SCH (21:00)
--- NOTE | 2016-12-19 22:55 | Pulmonology Progress Note ---
Assessment/Plan Problems: (1) Hemoptysis (2) ESRD (end stage renal disease) (3) Hypertension (4) Diabetes (5) Leukocytosis Assessment/Plan No more hemoptysis BP stable sliding scale, insulin coverage. f/u wbc continue abx, check sputum Subjective ROS Limited/Unobtainable: Yes Respiratory: Reports: dyspnea on exertion, hemoptysis, productive cough, shortness of breath, sputum Allergies: Coded Allergies: [place] (Verified Allergy, Unknown, 12/17/16) MORPHINE (Verified Allergy, Unknown, 12/17/16) STRAWBERRY (Verified Allergy, Unknown, 12/17/16) Uncoded Allergies: PEANUTS (Allergy, Unknown, 12/17/16) PLASTIC TAPE (Allergy, Unknown, 12/17/16) Objective Last 24 Hour Vital Signs Date Time Temp Pulse Resp B/P Pulse Ox O2 Delivery O2 Flow Rate FiO2 12/19/16 21:42 100 133/84 12/19/16 19:00 97.5 100 20 133/84 97 Room Air 12/19/16 19:00 97.5 100 12/19/16 18:36 132/78 12/19/16 16:00 97.9 94 20 132/78 97 Room Air 12/19/16 15:38 87 16 93 Room Air 21 12/19/16 15:38 83 16 93 Room Air 12/19/16 12:00 97.3 95 18 158/86 95 Room Air 12/19/16 11:00 98 18 97 Room Air 12/19/16 10:55 98 20 97 Room Air 12/19/16 10:11 101 116/79 12/19/16 09:00 101 116/79 12/19/16 09:00 116/79 12/19/16 08:00 97.3 101 20 116/79 94 Room Air 12/19/16 07:23 94 Room Air 12/19/16 07:23 Room Air 12/19/16 07:00 Room Air 12/19/16 07:00 Room Air 12/19/16 04:00 97.8 101 18 109/76 92 Room Air 12/19/16 03:09 Room Air 12/19/16 03:09 Room Air 12/19/16 00:00 97.9 103 18 112/74 91 Room Air 12/18/16 23:39 Room Air 12/18/16 23:38 Room Air Intake and Output 12/18/16 12/19/16 19:00 07:00 Intake Total 490 ml 840 ml Output Total 2100 ml 10 ml Balance -1610 ml 830 ml Intake Oral 240 ml 440 ml IV Total 250 ml 400 ml Output Stool Total 10 ml Hemodialysis UF 2100 ml # Voids 1 # Bowel Movements 2 General Appearance: no acute distress HEENT: normocephalic, atraumatic, PERRL Respiratory/Chest: chest wall non-tender, decreased breath sounds, accessory muscle use, crackles/rales, rhonchi Breasts: no masses Cardiovascular: normal peripheral pulses, normal rate, regular rhythm, no JVD Abdomen: normal bowel sounds, soft, non tender, no organomegaly, non distended Genitourinary: normal external genitalia Extremities: no cyanosis Skin: rash, lesions Neurologic/Psychiatric: fixer boarding room II-XII grossly normal, no motor/sensory deficits Microbiology Date/Time Source Procedure Growth Status 12/17/16 09:30 Blood Blood Culture - Preliminary NO GROWTH AFTER 24 HOURS Resulted 12/17/16 09:30 Blood Blood Culture - Preliminary NO GROWTH AFTER 24 HOURS Resulted 12/17/16 10:30 Nasal Nares MRSA Culture - Final NO METHICILLIN RESISTANT STAPH AUREUS... Complete 12/17/16 10:30 Rectum VRE Culture - Final Enterococcus Faecalis - Vre Complete Laboratory Tests 12/19/16 05:35: White Blood Count 12.0H, Red Blood Count 3.49L, Hemoglobin 9.6L, Hematocrit 31.8L, Mean Corpuscular Volume 91, Mean Corpuscular Hemoglobin 27.6, Mean Corpuscular Hemoglobin Concent 30.3L, Red Cell Distribution Width 21.3H, Platelet Count 122L, Mean Platelet Volume 11.0H, Neutrophils (%) (Auto) 81.5H, Lymphocytes (%) (Auto) 8.1L, Monocytes (%) (Auto) 8.2, Eosinophils (%) (Auto) 2.0, Basophils (%) (Auto) 0.2, Sodium Level 141, Potassium Level 3.8, Chloride Level 97L, Carbon Dioxide Level 23, Anion Gap 21H, Blood Urea Nitrogen 32H, Creatinine 6.6H, Estimat Glomerular Filtration Rate 7.6, Glucose Level 103, Calcium Level 9.5 Current Medications Medications (Trade) Dose Ordered Sig/Gretchen Route PRN Reason Start Time Stop Time Status Last Admin Dose Admin Acetaminophen (Tylenol) 650 mg Q4H PRN ORAL fever 12/18/16 11:30 01/17/17 11:29 Al Hydroxide/Mg Hydroxide (Mylanta II) 30 ml Q6H PRN ORAL dyspepsia 12/18/16 15:30 01/17/17 15:29 Albuterol/ Ipratropium (DuoNeb 0.5-3(2.5)mg/3ml) 3 ml Q6HRT PRN HHN dyspnea 12/18/16 13:00 12/23/16 12:59 Amiodarone HCl (Cordarone) 200 mg EVERY 12 HOURS ORAL 12/18/16 21:00 01/17/17 20:59 12/19/16 21:42 Amlodipine Besylate (Norvasc) 10 mg DAILY ORAL 12/19/16 09:00 01/18/17 08:59 12/19/16 10:11 Ceftazidime 1 gm/ Dextrose 55 ml @ 110 mls/hr POSTHD IV 12/18/16 18:00 12/25/16 17:59 Clonidine HCl (Catapres) 0.1 mg Q4H PRN ORAL For High Blood Pressure 12/18/16 11:30 01/17/17 11:29 Dextrose (Dextrose 50%) STAT PRN IV Hypoglycemia 12/18/16 15:30 01/17/17 15:29 Dextrose/Sodium Chloride 1,000 ml @ 50 mls/hr Q20H IV 12/18/16 12:00 01/17/17 11:59 12/18/16 11:50 Docusate Sodium (Colace) 100 mg THREE TIMES A DAY ORAL 12/18/16 13:00 01/17/17 12:59 Donepezil HCl (Aricept) 5 mg QHS ORAL 12/19/16 21:00 01/18/17 20:59 Insulin Aspart (NovoLOG) BEFORE MEALS AND HS SUBQ 12/18/16 11:30 01/17/17 11:29 12/19/16 21:47 Losartan Potassium (Cozaar) 50 mg BID ORAL 12/18/16 18:00 01/17/17 17:59 12/19/16 18:36 Metoprolol Tartrate (Lopressor) 25 mg EVERY 12 HOURS ORAL 12/18/16 21:00 01/17/17 20:59 12/19/16 21:42 Ondansetron HCl (Zofran) 4 mg Q6H PRN IVP Nausea & Vomiting 12/18/16 15:30 01/17/17 15:29 Pantoprazole (Protonix) 40 mg DAILY ORAL 12/19/16 09:00 01/18/17 08:59 12/19/16 10:15 Polyethylene Glycol (Miralax) 17 gm HSPRN PRN ORAL Constipation 12/18/16 15:30 01/17/17 15:29 Pregabalin (Lyrica) 75 mg THREE TIMES A DAY PRN ORAL Severe Pain (Pain Scale 7-10) 12/18/16 13:00 01/17/17 12:59 Sevelamer Carbonate (Renvela) 800 mg THREE TIMES A DAY ORAL 12/18/16 13:00 01/17/17 12:59 Vancomycin HCl/ Dextrose (Vancomycin/D5W) 110 ml @ 110 mls/hr POSTHD IVPB 12/18/16 18:30 12/23/16 18:29 Zolpidem Tartrate (Ambien) 5 mg HSPRN PRN ORAL Insomnia 12/18/16 15:30 01/17/17 15:29 MILO CRAMER Dec 19, 2016 22:55
[2016-12-20] VITALS: BP 131/61
--- NOTE | 2016-12-20 02:58 | Consultation ---
DATE OF CONSULTATION: 12/18/2016 CONSULTING PHYSICIAN: Cordell Hung M.D. REQUESTING PHYSICIAN: Dheeraj Rodriguez D.O. HISTORY OF PRESENT ILLNESS: The patient is a female patient, who was admitted to [facility] due to hemoptysis and end-stage renal disease. This patient weakness, hemoptysis, and lethargy. This is a 66-year-old female patient. She came in from [facility] and she is admitted to [facility] for further care. She is confused and disorganized. She seemed to have a disorganized thought process. She is a poor historian. Because of her medical problem, her cognition has declined below baseline and that is why there was a psychiatric consultation requested for this patient. She appears to be lethargic and confused. The patient is confused and disorganized, poor cognition. PAST MEDICAL HISTORY: As far as her medical history, she has a history of hypertension, COPD, and diabetes. ALLERGIES: To morphine. SOCIAL HISTORY: As far as her social history, she is currently living in [facility], financially supported by [facility] and Medicare. SUBSTANCE ABUSE HISTORY: She denies drug and alcohol use. PSYCHIATRIC HISTORY: She has paranoid schizophrenia, rule out dementia with psychosis. MENTAL STATUS EXAMINATION: This is a 66-year-old female with psychomotor retardation. Mood is depressed. Affect is guarded and restricted. Thought process is disorganized and illogical. No signs of any suicidal or homicidal thoughts. Insight and judgment is poor. PLAN: The plan for this patient is to continue to observe this patient throughout her hospital course . She will continue to be followed by Psychiatry throughout her hospital course. The patient was seen and assessed at bedside. Chart was reviewed and discussed with staff. I would like to thank, Dr. Dheeraj Barriga, for this interesting consultation. Cordell Hung M.D. DR: Juan JOB#: [id number] CC:
--- NOTE | 2016-12-20 03:18 | Progress Note ---
DATE: 12/19/2016 SUBJECTIVE: The patient is cognition is declined to a baseline. The patient was given Aricept 5 mg nightly ____ 12/19/2016 PLAN: Chart reviewed and discussed with staff and The patient states that she had . Cordell Hung M.D. DR: Hubert JOB#: [id number] CC:
[2016-12-20 04:00] VITALS: BP 128/58
[2016-12-20] MEDS: NovoLOG Insulin Flexpen SUBQ SCH ×4 (05:44→21:23)
[2016-12-20 07:38] LABS: BASOPHILS % (AUTO) 0.6 % (0.0-2.0); EOSINOPHILS % (AUTO) 3.4 % (0.0-3.0); LYMPHOCYTES % (AUTO) 6.4 % (20.0-45.0); MEAN CORPUSCULAR HEMOGLOBIN 26.7 PG (27.0-31.0); MEAN CORPUSCULAR HGB CONC 29.7 G/DL (32.0-36.0); MEAN CORPUSCULAR VOLUME 90 FL (80-99); MEAN PLATELET VOLUME 10.5 FL (6.5-10.1); MONOCYTES % (AUTO) 6.7 % (1.0-10.0); NEUTROPHILS % (AUTO) 82.9 % (45.0-75.0); PLATELET COUNT 138 K/UL (150-450); RED BLOOD COUNT 3.56 M/UL (4.20-5.40); RED CELL DISTRIBUTION WIDTH 21.4 % (11.6-14.8); WHITE BLOOD COUNT 12.5 K/UL (4.8-10.8)
[2016-12-20 08:04] LABS: ALANINE AMINOTRANSFERASE < 5 U/L (3-33); ALBUMIN/GLOBULIN RATIO 0.8 (1.0-2.7); ANION GAP 23 (5-15); ASPARTATE AMINO TRANSFERASE 8 U/L (5-40); CALCIUM 9.1 mg/dL (8.6-10.2); CARBON DIOXIDE 20 mEQ/L (20-30); CHLORIDE 96 mEQ/L (98-107); CREATININE 8.9 mg/dL (0.5-0.9); GLOMERULAR FILTRATION RATE 5.5 mL/min (>60); HEMOLYSIS 1; MAGNESIUM 2.1 mg/dL (1.7-2.5); PHOSPHORUS 5.4 mg/dL (2.5-4.8); POTASSIUM 3.9 mEQ/L (3.4-4.9); SODIUM 139 mEQ/L (135-145); TOTAL PROTEIN 7.4 g/dL (6.6-8.7); URIC ACID 6.5 mg/dL (3.0-7.5)
[2016-12-20 08:14] VITALS: BP 155/77
[2016-12-20] MEDS: Docusate 100mg cap ORAL SCH ×3 (08:54→17:54)
[2016-12-20] MEDS: Losartan 50mg tab ORAL SCH ×2 (08:56→17:07)
[2016-12-20] MEDS: Metoprolol 25mg tab ORAL SCH ×2 (08:57→21:22)
[2016-12-20] MEDS: Amiodarone 200mg tab ORAL SCH ×2 (08:57→21:22)
--- NOTE | 2016-12-20 09:07 | General Progress Note ---
Assessment/Plan Status: unchanged Status Narrative refusing dialysis today until tomorrow Assessment/Plan ESRD- HD 12/18 done- HTN DM Hemoptysis vs bloody vomitus plan: HD in am- 12/21 Per pulm and GI Med adjustment per orders Subjective ROS Limited/Unobtainable: No Allergies: Coded Allergies: [place] (Verified Allergy, Unknown, 12/17/16) MORPHINE (Verified Allergy, Unknown, 12/17/16) STRAWBERRY (Verified Allergy, Unknown, 12/17/16) Uncoded Allergies: PEANUTS (Allergy, Unknown, 12/17/16) PLASTIC TAPE (Allergy, Unknown, 12/17/16) Objective Last 24 Hour Vital Signs Date Time Temp Pulse Resp B/P Pulse Ox O2 Delivery O2 Flow Rate FiO2 12/20/16 08:57 91 155/77 12/20/16 08:57 91 155/77 12/20/16 08:56 155/77 12/20/16 08:14 97.5 91 18 155/77 96 Room Air 12/20/16 07:39 Room Air 12/20/16 07:39 95 Room Air 12/20/16 07:35 90 16 95 Room Air 12/20/16 07:30 89 16 95 Room Air 12/20/16 04:00 98.0 77 18 128/58 98 Room Air 12/20/16 03:39 Room Air 12/20/16 03:39 Room Air 12/20/16 00:00 98.2 18 131/61 97 Room Air 12/19/16 23:27 96 21 12/19/16 23:12 Room Air 12/19/16 23:11 99 Room Air 12/19/16 21:42 100 133/84 12/19/16 19:36 86 16 95 Room Air 21 12/19/16 19:36 81 16 94 Room Air 21 12/19/16 19:00 97.5 100 20 133/84 97 Room Air 12/19/16 19:00 97.5 100 12/19/16 18:36 132/78 12/19/16 16:00 97.9 94 20 132/78 97 Room Air 12/19/16 15:38 87 16 93 Room Air 21 12/19/16 15:38 83 16 93 Room Air 12/19/16 12:00 97.3 95 18 158/86 95 Room Air 12/19/16 11:00 98 18 97 Room Air 12/19/16 10:55 98 20 97 Room Air 12/19/16 10:11 101 116/79 Intake and Output 12/19/16 12/20/16 19:00 07:00 Intake Total 900 ml 630 ml Balance 900 ml 630 ml Intake Oral 600 ml 380 ml IV Total 300 ml 250 ml # Voids 2 Laboratory Tests 12/20/16 06:25: White Blood Count 12.5H, Red Blood Count 3.56L, Hemoglobin 9.5L, Hematocrit 32.0L, Mean Corpuscular Volume 90, Mean Corpuscular Hemoglobin 26.7L, Mean Corpuscular Hemoglobin Concent 29.7L, Red Cell Distribution Width 21.4H, Platelet Count 138L, Mean Platelet Volume 10.5H, Neutrophils (%) (Auto) 82.9H, Lymphocytes (%) (Auto) 6.4L, Monocytes (%) (Auto) 6.7, Eosinophils (%) (Auto) 3.4H, Basophils (%) (Auto) 0.6, Sodium Level 139, Potassium Level 3.9, Chloride Level 96L, Carbon Dioxide Level 20, Anion Gap 23H, Blood Urea Nitrogen 46H, Creatinine 8.9H, Estimat Glomerular Filtration Rate 5.5, Glucose Level 119H, Uric Acid 6.5, Calcium Level 9.1, Phosphorus Level 5.4H, Magnesium Level 2.1, Total Bilirubin 0.6, Aspartate Amino Transf (AST/SGOT) 8, Alanine Aminotransferase (ALT/SGPT) < 5, Alkaline Phosphatase 92, Total Protein 7.4, Albumin 3.4L, Globulin 4.0, Albumin/Globulin Ratio 0.8L Height (Feet): 5 Height (Inches): 4.00 Weight (Pounds): 160 General Appearance: no apparent distress Objective no change in PE NIALL HOLDER Dec 20, 2016 09:07
[2016-12-20] MEDS ORDERED: D5 1/2NS 1000ml IV ONE (10:43)
--- NOTE | 2016-12-20 11:35 | Diagnostic Imaging Report ---
Indications: Right foot pain, infection Technique: 3 views right foot Findings: Comparison: None The right forefoot has been amputated through the level of the metatarsal bases. Metatarsal stumps all appear well-corticated. Overlying soft tissues intact without swelling, defect, or gas. Large soft tissue defect is present plantar to the calcaneus. There is mild cortical irregularity/indistinctness of underlying calcaneal plantar spur. No other evidence of bone destruction. Scattered arterial mural calcifications. IMPRESSION: Plantar hindfoot ulcer. Osteomyelitis of underlying calcaneal spur must be excluded. MRI recommended for further evaluation. Previous transmetatarsal amputation, well healed without evidence of infection.
--- NOTE | 2016-12-20 11:35 | GI Progress Note ---
Assessment/Plan Problems: (1) Abdominal pain ICD Codes: R10.9 - Unspecified abdominal pain SNOMED: 85942665 (2) Anemia ICD Codes: D64.9 - Anemia, unspecified SNOMED: 056463248 (3) Hemoptysis ICD Codes: R04.2 - Hemoptysis SNOMED: 00102322 (4) Diabetes ICD Codes: E11.9 - Type 2 diabetes mellitus without complications SNOMED: 01505356 Status: stable Status Narrative Discussed with Dr. Conn. Assessment/Plan ok for DC per GI standpoint symptomatic treatment at this time zofran prn monitor H&H, transfuse prn ppi bowel regime fu labs outpatient GI procedures Subjective Gastrointestinal/Abdominal: Reports: no symptoms Objective Last 24 Hour Vital Signs Date Time Temp Pulse Resp B/P Pulse Ox O2 Delivery O2 Flow Rate FiO2 12/20/16 08:57 91 155/77 12/20/16 08:57 91 155/77 12/20/16 08:56 155/77 12/20/16 08:14 97.5 91 18 155/77 96 Room Air 12/20/16 07:39 Room Air 12/20/16 07:39 95 Room Air 12/20/16 07:35 90 16 95 Room Air 12/20/16 07:30 89 16 95 Room Air 12/20/16 04:00 98.0 77 18 128/58 98 Room Air 12/20/16 03:39 Room Air 12/20/16 03:39 Room Air 12/20/16 00:00 98.2 18 131/61 97 Room Air 12/19/16 23:27 96 21 12/19/16 23:12 Room Air 12/19/16 23:11 99 Room Air 12/19/16 21:42 100 133/84 12/19/16 19:36 86 16 95 Room Air 12/19/16 19:36 81 16 94 Room Air 12/19/16 19:00 97.5 100 20 133/84 97 Room Air 12/19/16 19:00 97.5 100 12/19/16 18:36 132/78 12/19/16 16:00 97.9 94 20 132/78 97 Room Air 12/19/16 15:38 87 16 93 Room Air 12/19/16 15:38 83 16 93 Room Air 12/19/16 12:00 97.3 95 18 158/86 95 Room Air Intake and Output 12/19/16 12/20/16 19:00 07:00 Intake Total 900 ml 680 ml Balance 900 ml 680 ml Intake Oral 600 ml 380 ml IV Total 300 ml 300 ml # Voids 2 Laboratory Tests Test 12/20/16 06:25 White Blood Count 12.5 K/UL (4.8-10.8) H Red Blood Count 3.56 M/UL (4.20-5.40) L Hemoglobin 9.5 G/DL (12.0-16.0) L Hematocrit 32.0 % (37.0-47.0) L Mean Corpuscular Volume 90 FL (80-99) Mean Corpuscular Hemoglobin 26.7 PG (27.0-31.0) L Mean Corpuscular Hemoglobin Concent 29.7 G/DL (32.0-36.0) L Red Cell Distribution Width 21.4 % (11.6-14.8) H Platelet Count 138 K/UL (150-450) L Mean Platelet Volume 10.5 FL (6.5-10.1) H Neutrophils (%) (Auto) 82.9 % (45.0-75.0) H Lymphocytes (%) (Auto) 6.4 % (20.0-45.0) L Monocytes (%) (Auto) 6.7 % (1.0-10.0) Eosinophils (%) (Auto) 3.4 % (0.0-3.0) H Basophils (%) (Auto) 0.6 % (0.0-2.0) Sodium Level 139 mEQ/L (135-145) Potassium Level 3.9 mEQ/L (3.4-4.9) Chloride Level 96 mEQ/L (98-107) L Carbon Dioxide Level 20 mEQ/L (20-30) Anion Gap 23 (5-15) H Blood Urea Nitrogen 46 mg/dL (7-23) H Creatinine 8.9 mg/dL (0.5-0.9) H Estimat Glomerular Filtration Rate 5.5 mL/min (>60) Glucose Level 119 mg/dL (74-106) H Uric Acid 6.5 mg/dL (3.0-7.5) Calcium Level 9.1 mg/dL (8.6-10.2) Phosphorus Level 5.4 mg/dL (2.5-4.8) H Magnesium Level 2.1 mg/dL (1.7-2.5) Total Bilirubin 0.6 mg/dL (0.0-1.2) Aspartate Amino Transf (AST/SGOT) 8 U/L (5-40) Alanine Aminotransferase (ALT/SGPT) < 5 U/L (3-33) Alkaline Phosphatase 92 U/L (35-104) Total Protein 7.4 g/dL (6.6-8.7) Albumin 3.4 g/dL (3.5-5.2) L Globulin 4.0 g/dL Albumin/Globulin Ratio 0.8 (1.0-2.7) L Height (Feet): 5 Height (Inches): 4.00 Weight (Pounds): 160 General Appearance: no apparent distress, alert Cardiovascular: normal rate Respiratory/Chest: normal breath sounds, no respiratory distress Abdominal Exam: normal bowel sounds, non tender, soft Genitourinary/Rectal: other - rectal tube Mayra Arreola N.P. Dec 20, 2016 11:35
[2016-12-20 12:00] VITALS: BP 139/83
--- NOTE | 2016-12-20 13:43 | General Progress Note ---
Assessment/Plan Problem List: (1) HTN (hypertension) ICD Codes: I10 - Essential (primary) hypertension SNOMED: 36276841 (2) CHF (congestive heart failure) ICD Codes: I50.9 - Heart failure, unspecified SNOMED: 58397836 (3) Diabetes ICD Codes: E11.9 - Type 2 diabetes mellitus without complications SNOMED: 10614181 (4) Leukocytosis ICD Codes: D72.829 - Elevated white blood cell count, unspecified SNOMED: 514527009, 809724565 (5) Anemia ICD Codes: D64.9 - Anemia, unspecified SNOMED: 407748851 (6) ESRD (end stage renal disease) ICD Codes: N18.6 - End stage renal disease SNOMED: 94094599 (7) Hypertension ICD Codes: I10 - Essential (primary) hypertension SNOMED: 24284047 (8) Hemoptysis ICD Codes: R04.2 - Hemoptysis SNOMED: 08352695 (9) Abdominal pain ICD Codes: R10.9 - Unspecified abdominal pain SNOMED: 00364181 Status: stable, progressing, tolerating diet Assessment/Plan ot pt diet abx dialysis cbc bmp am promise ltach transfer Subjective Constitutional: Reports: weakness Allergies: Coded Allergies: [place] (Verified Allergy, Unknown, 12/17/16) MORPHINE (Verified Allergy, Unknown, 12/17/16) STRAWBERRY (Verified Allergy, Unknown, 12/17/16) Uncoded Allergies: PEANUTS (Allergy, Unknown, 12/17/16) PLASTIC TAPE (Allergy, Unknown, 12/17/16) All Systems: reviewed and negative except above Subjective sleepy calm Objective Last 24 Hour Vital Signs Date Time Temp Pulse Resp B/P Pulse Ox O2 Delivery O2 Flow Rate FiO2 12/20/16 12:00 98.2 88 18 139/83 97 Room Air 12/20/16 11:20 94 18 95 Room Air 21 12/20/16 11:15 87 16 95 Room Air 21 12/20/16 08:57 91 155/77 12/20/16 08:57 91 155/77 12/20/16 08:56 155/77 12/20/16 08:14 97.5 91 18 155/77 96 Room Air 12/20/16 07:39 Room Air 12/20/16 07:39 95 Room Air 12/20/16 07:35 90 16 95 Room Air 21 12/20/16 07:30 89 16 95 Room Air 21 12/20/16 04:00 98.0 77 18 128/58 98 Room Air 12/20/16 03:39 Room Air 12/20/16 03:39 Room Air 12/20/16 00:00 98.2 18 131/61 97 Room Air 12/19/16 23:27 96 21 12/19/16 23:12 Room Air 12/19/16 23:11 99 Room Air 21 12/19/16 21:42 100 133/84 12/19/16 19:36 86 16 95 Room Air 21 12/19/16 19:36 81 16 94 Room Air 21 12/19/16 19:00 97.5 100 20 133/84 97 Room Air 12/19/16 19:00 97.5 100 12/19/16 18:36 132/78 12/19/16 16:00 97.9 94 20 132/78 97 Room Air 12/19/16 15:38 87 16 93 Room Air 21 12/19/16 15:38 83 16 93 Room Air Intake and Output 12/19/16 12/20/16 19:00 07:00 Intake Total 900 ml 680 ml Balance 900 ml 680 ml Intake Oral 600 ml 380 ml IV Total 300 ml 300 ml # Voids 2 Laboratory Tests 12/20/16 06:25: White Blood Count 12.5H, Red Blood Count 3.56L, Hemoglobin 9.5L, Hematocrit 32.0L, Mean Corpuscular Volume 90, Mean Corpuscular Hemoglobin 26.7L, Mean Corpuscular Hemoglobin Concent 29.7L, Red Cell Distribution Width 21.4H, Platelet Count 138L, Mean Platelet Volume 10.5H, Neutrophils (%) (Auto) 82.9H, Lymphocytes (%) (Auto) 6.4L, Monocytes (%) (Auto) 6.7, Eosinophils (%) (Auto) 3.4H, Basophils (%) (Auto) 0.6, Sodium Level 139, Potassium Level 3.9, Chloride Level 96L, Carbon Dioxide Level 20, Anion Gap 23H, Blood Urea Nitrogen 46H, Creatinine 8.9H, Estimat Glomerular Filtration Rate 5.5, Glucose Level 119H, Uric Acid 6.5, Calcium Level 9.1, Phosphorus Level 5.4H, Magnesium Level 2.1, Total Bilirubin 0.6, Aspartate Amino Transf (AST/SGOT) 8, Alanine Aminotransferase (ALT/SGPT) < 5, Alkaline Phosphatase 92, Total Protein 7.4, Albumin 3.4L, Globulin 4.0, Albumin/Globulin Ratio 0.8L Height (Feet): 5 Height (Inches): 4.00 Weight (Pounds): 160 General Appearance: lethargic EENT: normal ENT inspection Neck: normal alignment Cardiovascular: normal peripheral pulses, normal rate, regular rhythm Respiratory/Chest: chest wall non-tender, lungs clear, normal breath sounds Abdomen: normal bowel sounds, non tender, soft Extremities: normal inspection Edema: no edema noted Arm (L), no edema noted Arm (R), no edema noted Leg (L), no edema noted Leg (R), no edema noted Pedal (L), no edema noted Pedal (R), no edema noted Generalized Neurologic: motor weakness Skin: normal pigmentation, warm/dry CATARINA CHAU Dec 20, 2016 13:43
--- NOTE | 2016-12-20 14:43 | Diagnostic Imaging Report ---
APPROVED REPORT CPT Code: 09453 Present Symptoms Shortness of breath BILATERAL: Imaging reveals a patent deep venous system bilaterally. There is no evidence of thrombus within the femoral, popliteal or tibial segments. The greater saphenous veins are also within normal limits. Doppler indicates normal spontaneous flow within these segments.
--- NOTE | 2016-12-20 16:29 | Cardiac Electrophysiology PN ---
Assessment/Plan Assessment/Plan 1. Shortness of breath due to volume overload.Better after hemodialysis. 2. Hypertension on Norvasc 10 mg daily and metoprolol 25 mg b.i.d., Cozaar 50 mg b.i.d. and hemodialysis. 3. Volume overload due to renal failure.Echocardiogram showed Ef 55% 4. Atrial fibrillation. In SR on on amiodarone 200 mg b.i.d. and metoprolol 25 mg b.i.d. T 5. Anemia due to renal failure. 6. Diabetes. 7. ESRD on HD S,T,T CINDY RN Subjective Subjective Comfortable in NAD. Transferred to nonmonitored bed. Objective Last 24 Hour Vital Signs Date Time Temp Pulse Resp B/P Pulse Ox O2 Delivery O2 Flow Rate FiO2 12/20/16 15:05 84 18 95 Room Air 12/20/16 15:00 85 16 95 Room Air 12/20/16 12:00 98.2 88 18 139/83 97 Room Air 12/20/16 11:20 94 18 95 Room Air 12/20/16 11:15 87 16 95 Room Air 12/20/16 08:57 91 155/77 12/20/16 08:57 91 155/77 12/20/16 08:56 155/77 12/20/16 08:14 97.5 91 18 155/77 96 Room Air 12/20/16 07:39 Room Air 12/20/16 07:39 95 Room Air 12/20/16 07:35 90 16 95 Room Air 12/20/16 07:30 89 16 95 Room Air 12/20/16 04:00 98.0 77 18 128/58 98 Room Air 12/20/16 03:39 Room Air 12/20/16 03:39 Room Air 12/20/16 00:00 98.2 18 131/61 97 Room Air 12/19/16 23:27 96 21 12/19/16 23:12 Room Air 12/19/16 23:11 99 Room Air 12/19/16 21:42 100 133/84 12/19/16 19:36 86 16 95 Room Air 12/19/16 19:36 81 16 94 Room Air 12/19/16 19:00 97.5 100 20 133/84 97 Room Air 12/19/16 19:00 97.5 100 12/19/16 18:36 132/78 Intake and Output 12/19/16 12/20/16 19:00 07:00 Intake Total 900 ml 680 ml Balance 900 ml 680 ml Intake Oral 600 ml 380 ml IV Total 300 ml 300 ml # Voids 2 Laboratory Tests Test 12/20/16 06:25 White Blood Count 12.5 K/UL (4.8-10.8) H Red Blood Count 3.56 M/UL (4.20-5.40) L Hemoglobin 9.5 G/DL (12.0-16.0) L Hematocrit 32.0 % (37.0-47.0) L Mean Corpuscular Volume 90 FL (80-99) Mean Corpuscular Hemoglobin 26.7 PG (27.0-31.0) L Mean Corpuscular Hemoglobin Concent 29.7 G/DL (32.0-36.0) L Red Cell Distribution Width 21.4 % (11.6-14.8) H Platelet Count 138 K/UL (150-450) L Mean Platelet Volume 10.5 FL (6.5-10.1) H Neutrophils (%) (Auto) 82.9 % (45.0-75.0) H Lymphocytes (%) (Auto) 6.4 % (20.0-45.0) L Monocytes (%) (Auto) 6.7 % (1.0-10.0) Eosinophils (%) (Auto) 3.4 % (0.0-3.0) H Basophils (%) (Auto) 0.6 % (0.0-2.0) Sodium Level 139 mEQ/L (135-145) Potassium Level 3.9 mEQ/L (3.4-4.9) Chloride Level 96 mEQ/L (98-107) L Carbon Dioxide Level 20 mEQ/L (20-30) Anion Gap 23 (5-15) H Blood Urea Nitrogen 46 mg/dL (7-23) H Creatinine 8.9 mg/dL (0.5-0.9) H Estimat Glomerular Filtration Rate 5.5 mL/min (>60) Glucose Level 119 mg/dL (74-106) H Uric Acid 6.5 mg/dL (3.0-7.5) Calcium Level 9.1 mg/dL (8.6-10.2) Phosphorus Level 5.4 mg/dL (2.5-4.8) H Magnesium Level 2.1 mg/dL (1.7-2.5) Total Bilirubin 0.6 mg/dL (0.0-1.2) Aspartate Amino Transf (AST/SGOT) 8 U/L (5-40) Alanine Aminotransferase (ALT/SGPT) < 5 U/L (3-33) Alkaline Phosphatase 92 U/L (35-104) Total Protein 7.4 g/dL (6.6-8.7) Albumin 3.4 g/dL (3.5-5.2) L Globulin 4.0 g/dL Albumin/Globulin Ratio 0.8 (1.0-2.7) L Objective HEAD AND NECK: Showed no JVD. LUNGS: Decreased breath sounds. CARDIOVASCULAR: Shows tachycardic. S1 and S2 with no gallop or murmur. ABDOMEN: Soft. EXTREMITIES: Status post right metatarsal amputation. A 1+ pitting edema. KADEN ZHU Dec 20, 2016 16:29
--- NOTE | 2016-12-20 16:49 | Infectious Diseases Prog Note ---
Assessment/Plan Problems: (1) Interstitial lung disease Assessment & Plan: suspect pneumonia, continue vancomycin and cefepime , await cultures (2) Hemoptysis Assessment & Plan: resolved, suspect due to above , further eval and management as per animal rehabilitator (3) Diabetes Assessment & Plan: recommend tight glycemic control to keep blood glucose between 80-120 (4) ESRD (end stage renal disease) Assessment & Plan: on HD ,renal is following (5) Skin ulcer of right foot Assessment & Plan: recommend creative services manager eval, X ray didn't rule out osteomyelitis, will order MRI of the right foot. 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 & Plan: keep in contact isolation Subjective Constitutional: Denies: anorexia, chills, drenching sweats, fatigue, fever, no symptoms, other HEENT: Denies: congestion, coryza, dysphagia, hearing change, no symptoms, other, visual change Respiratory: Denies: dry cough, no symptoms, other, productive cough, shortness of breath Cardiovascular: Denies: chest pain, dyspnea on exertion, no symptoms, other, palpitations Gastrointestinal/Abdominal: Denies: bloating, blood in stool, constipation, diarrhea, nausea, no symptoms, other, vomiting Genitourinary: Denies: dysuria, frequency, hematuria, last menstrual period, no symptoms, nocturia, other, vaginal bleed/discharge Neurologic: Denies: confusion, headache, no symptoms, numbness, other, weakness Psychiatric: Denies: anxiety, depression, no symptoms, other Skin: Reports: ulcer Allergies: Coded Allergies: [place] (Verified Allergy, Unknown, 12/17/16) MORPHINE (Verified Allergy, Unknown, 12/17/16) STRAWBERRY (Verified Allergy, Unknown, 12/17/16) Uncoded Allergies: PEANUTS (Allergy, Unknown, 12/17/16) PLASTIC TAPE (Allergy, Unknown, 12/17/16) Objective Vital Signs Last 24 Hour Vital Signs Date Time Temp Pulse Resp B/P Pulse Ox O2 Delivery O2 Flow Rate FiO2 12/20/16 15:05 84 18 95 Room Air 21 12/20/16 15:00 85 16 95 Room Air 21 12/20/16 12:00 98.2 88 18 139/83 97 Room Air 12/20/16 11:20 94 18 95 Room Air 21 12/20/16 11:15 87 16 95 Room Air 21 12/20/16 08:57 91 155/77 12/20/16 08:57 91 155/77 12/20/16 08:56 155/77 12/20/16 08:14 97.5 91 18 155/77 96 Room Air 12/20/16 07:39 Room Air 12/20/16 07:39 95 Room Air 12/20/16 07:35 90 16 95 Room Air 21 12/20/16 07:30 89 16 95 Room Air 21 12/20/16 04:00 98.0 77 18 128/58 98 Room Air 12/20/16 03:39 Room Air 12/20/16 03:39 Room Air 12/20/16 00:00 98.2 18 131/61 97 Room Air 12/19/16 23:27 96 21 12/19/16 23:12 Room Air 12/19/16 23:11 99 Room Air 21 12/19/16 21:42 100 133/84 12/19/16 19:36 86 16 95 Room Air 12/19/16 19:36 81 16 94 Room Air 21 12/19/16 19:00 97.5 100 20 133/84 97 Room Air 12/19/16 19:00 97.5 100 12/19/16 18:36 132/78 Height (Feet): 5 Height (Inches): 4.00 Weight (Pounds): 160 General Appearance: WD/WN, no acute distress HEENT: normocephalic, atraumatic, anicteric, mucous membranes moist Respiratory/Chest: chest wall non-tender, normal breath sounds, no respiratory distress, no accessory muscle use, decreased breath sounds, crackles/rales Cardiovascular: normal peripheral pulses, normal rate, regular rhythm, no gallop/murmur, no JVD Abdomen: normal bowel sounds, soft, non tender, no organomegaly, non distended , no mass Extremities: no cyanosis, no clubbing Skin: no rash, ulcers Laboratory Tests Test 12/20/16 06:25 White Blood Count 12.5 K/UL (4.8-10.8) H Red Blood Count 3.56 M/UL (4.20-5.40) L Hemoglobin 9.5 G/DL (12.0-16.0) L Hematocrit 32.0 % (37.0-47.0) L Mean Corpuscular Volume 90 FL (80-99) Mean Corpuscular Hemoglobin 26.7 PG (27.0-31.0) L Mean Corpuscular Hemoglobin Concent 29.7 G/DL (32.0-36.0) L Red Cell Distribution Width 21.4 % (11.6-14.8) H Platelet Count 138 K/UL (150-450) L Mean Platelet Volume 10.5 FL (6.5-10.1) H Neutrophils (%) (Auto) 82.9 % (45.0-75.0) H Lymphocytes (%) (Auto) 6.4 % (20.0-45.0) L Monocytes (%) (Auto) 6.7 % (1.0-10.0) Eosinophils (%) (Auto) 3.4 % (0.0-3.0) H Basophils (%) (Auto) 0.6 % (0.0-2.0) Sodium Level 139 mEQ/L (135-145) Potassium Level 3.9 mEQ/L (3.4-4.9) Chloride Level 96 mEQ/L (98-107) L Carbon Dioxide Level 20 mEQ/L (20-30) Anion Gap 23 (5-15) H Blood Urea Nitrogen 46 mg/dL (7-23) H Creatinine 8.9 mg/dL (0.5-0.9) H Estimat Glomerular Filtration Rate 5.5 mL/min (>60) Glucose Level 119 mg/dL (74-106) H Uric Acid 6.5 mg/dL (3.0-7.5) Calcium Level 9.1 mg/dL (8.6-10.2) Phosphorus Level 5.4 mg/dL (2.5-4.8) H Magnesium Level 2.1 mg/dL (1.7-2.5) Total Bilirubin 0.6 mg/dL (0.0-1.2) Aspartate Amino Transf (AST/SGOT) 8 U/L (5-40) Alanine Aminotransferase (ALT/SGPT) < 5 U/L (3-33) Alkaline Phosphatase 92 U/L (35-104) Total Protein 7.4 g/dL (6.6-8.7) Albumin 3.4 g/dL (3.5-5.2) L Globulin 4.0 g/dL Albumin/Globulin Ratio 0.8 (1.0-2.7) L Current Medications Medications (Trade) Dose Ordered Sig/Gretchen Route PRN Reason Start Time Stop Time Status Last Admin Dose Admin Acetaminophen (Tylenol) 650 mg Q4H PRN ORAL fever 12/18/16 11:30 01/17/17 11:29 Al Hydroxide/Mg Hydroxide (Mylanta II) 30 ml Q6H PRN ORAL dyspepsia 12/18/16 15:30 01/17/17 15:29 Albuterol/ Ipratropium (DuoNeb 0.5-3(2.5)mg/3ml) 3 ml Q6HRT PRN HHN dyspnea 12/18/16 13:00 12/23/16 12:59 Amiodarone HCl (Cordarone) 200 mg EVERY 12 HOURS ORAL 12/18/16 21:00 01/17/17 20:59 12/20/16 08:57 Amlodipine Besylate (Norvasc) 10 mg DAILY ORAL 12/19/16 09:00 01/18/17 08:59 12/20/16 08:57 Ceftazidime 1 gm/ Dextrose 55 ml @ 110 mls/hr POSTHD IV 12/18/16 18:00 12/25/16 17:59 Clonidine HCl (Catapres) 0.1 mg Q4H PRN ORAL For High Blood Pressure 12/18/16 11:30 01/17/17 11:29 Dextrose (Dextrose 50%) STAT PRN IV Hypoglycemia 12/18/16 15:30 01/17/17 15:29 Dextrose/Sodium Chloride 1,000 ml @ 50 mls/hr Q20H IV 12/18/16 12:00 01/17/17 11:59 12/19/16 23:43 Docusate Sodium (Colace) 100 mg THREE TIMES A DAY ORAL 12/18/16 13:00 01/17/17 12:59 Donepezil HCl (Aricept) 5 mg QHS ORAL 12/19/16 21:00 01/18/17 20:59 Insulin Aspart (NovoLOG) BEFORE MEALS AND HS SUBQ 12/18/16 11:30 01/17/17 11:29 12/20/16 11:15 Losartan Potassium (Cozaar) 50 mg BID ORAL 12/18/16 18:00 01/17/17 17:59 12/20/16 08:56 Metoprolol Tartrate (Lopressor) 25 mg EVERY 12 HOURS ORAL 12/18/16 21:00 01/17/17 20:59 12/20/16 08:57 Ondansetron HCl (Zofran) 4 mg Q6H PRN IVP Nausea & Vomiting 12/18/16 15:30 01/17/17 15:29 Pantoprazole (Protonix) 40 mg DAILY ORAL 12/19/16 09:00 01/18/17 08:59 12/20/16 08:56 Polyethylene Glycol (Miralax) 17 gm HSPRN PRN ORAL Constipation 12/18/16 15:30 01/17/17 15:29 Pregabalin (Lyrica) 75 mg THREE TIMES A DAY PRN ORAL Severe Pain (Pain Scale 7-10) 12/18/16 13:00 01/17/17 12:59 Sevelamer Carbonate (Renvela) 800 mg THREE TIMES A DAY ORAL 12/18/16 13:00 01/17/17 12:59 Vancomycin HCl/ Dextrose (Vancomycin/D5W) 110 ml @ 110 mls/hr POSTHD IVPB 12/18/16 18:30 12/23/16 18:29 Zolpidem Tartrate (Ambien) 5 mg HSPRN PRN ORAL Insomnia 12/18/16 15:30 01/17/17 15:29 Ajay Garcia M.D. Dec 20, 2016 16:49
[2016-12-20 17:00] VITALS: BP 145/77
--- NOTE | 2016-12-20 17:23 | Pulmonology Progress Note ---
Assessment/Plan Problems: (1) Hemoptysis (2) ESRD (end stage renal disease) (3) Hypertension (4) Diabetes (5) Leukocytosis Assessment/Plan No more hemoptysis BP stable sliding scale, insulin coverage. f/u wbc continue abx, check sputum Subjective ROS Limited/Unobtainable: No Respiratory: Reports: dyspnea at rest, dyspnea on exertion, hemoptysis, pleuritic pain, shortness of breath, sputum, wheezing Allergies: Coded Allergies: [place] (Verified Allergy, Unknown, 12/17/16) MORPHINE (Verified Allergy, Unknown, 12/17/16) STRAWBERRY (Verified Allergy, Unknown, 12/17/16) Uncoded Allergies: PEANUTS (Allergy, Unknown, 12/17/16) PLASTIC TAPE (Allergy, Unknown, 12/17/16) Objective Last 24 Hour Vital Signs Date Time Temp Pulse Resp B/P Pulse Ox O2 Delivery O2 Flow Rate FiO2 12/20/16 17:07 139/83 12/20/16 15:05 84 18 95 Room Air 12/20/16 15:00 85 16 95 Room Air 12/20/16 12:00 98.2 88 18 139/83 97 Room Air 12/20/16 11:20 94 18 95 Room Air 12/20/16 11:15 87 16 95 Room Air 12/20/16 08:57 91 155/77 12/20/16 08:57 91 155/77 12/20/16 08:56 155/77 12/20/16 08:14 97.5 91 18 155/77 96 Room Air 12/20/16 07:39 Room Air 12/20/16 07:39 95 Room Air 12/20/16 07:35 90 16 95 Room Air 21 12/20/16 07:30 89 16 95 Room Air 21 12/20/16 04:00 98.0 77 18 128/58 98 Room Air 12/20/16 03:39 Room Air 12/20/16 03:39 Room Air 12/20/16 00:00 98.2 18 131/61 97 Room Air 12/19/16 23:27 96 21 12/19/16 23:12 Room Air 12/19/16 23:11 99 Room Air 12/19/16 21:42 100 133/84 12/19/16 19:36 86 16 95 Room Air 21 12/19/16 19:36 81 16 94 Room Air 21 12/19/16 19:00 97.5 100 20 133/84 97 Room Air 12/19/16 19:00 97.5 100 12/19/16 18:36 132/78 Intake and Output 12/19/16 12/20/16 19:00 07:00 Intake Total 900 ml 680 ml Balance 900 ml 680 ml Intake Oral 600 ml 380 ml IV Total 300 ml 300 ml # Voids 2 General Appearance: no acute distress HEENT: normocephalic, atraumatic, PERRL Respiratory/Chest: chest wall non-tender, decreased breath sounds, accessory muscle use, crackles/rales, rhonchi Breasts: no masses Cardiovascular: normal peripheral pulses, normal rate, regular rhythm Abdomen: normal bowel sounds, soft, non tender, no organomegaly Genitourinary: normal external genitalia Extremities: no cyanosis Skin: rash, lesions, ulcers Neurologic/Psychiatric: binding dyer II-XII grossly normal, no motor/sensory deficits Laboratory Tests 12/20/16 06:25: White Blood Count 12.5H, Red Blood Count 3.56L, Hemoglobin 9.5L, Hematocrit 32.0L, Mean Corpuscular Volume 90, Mean Corpuscular Hemoglobin 26.7L, Mean Corpuscular Hemoglobin Concent 29.7L, Red Cell Distribution Width 21.4H, Platelet Count 138L, Mean Platelet Volume 10.5H, Neutrophils (%) (Auto) 82.9H, Lymphocytes (%) (Auto) 6.4L, Monocytes (%) (Auto) 6.7, Eosinophils (%) (Auto) 3.4H, Basophils (%) (Auto) 0.6, Sodium Level 139, Potassium Level 3.9, Chloride Level 96L, Carbon Dioxide Level 20, Anion Gap 23H, Blood Urea Nitrogen 46H, Creatinine 8.9H, Estimat Glomerular Filtration Rate 5.5, Glucose Level 119H, Uric Acid 6.5, Calcium Level 9.1, Phosphorus Level 5.4H, Magnesium Level 2.1, Total Bilirubin 0.6, Aspartate Amino Transf (AST/SGOT) 8, Alanine Aminotransferase (ALT/SGPT) < 5, Alkaline Phosphatase 92, Total Protein 7.4, Albumin 3.4L, Globulin 4.0, Albumin/Globulin Ratio 0.8L Current Medications Medications (Trade) Dose Ordered Sig/Gretchen Route PRN Reason Start Time Stop Time Status Last Admin Dose Admin Acetaminophen (Tylenol) 650 mg Q4H PRN ORAL fever 12/18/16 11:30 01/17/17 11:29 Al Hydroxide/Mg Hydroxide (Mylanta II) 30 ml Q6H PRN ORAL dyspepsia 12/18/16 15:30 01/17/17 15:29 Albuterol/ Ipratropium (DuoNeb 0.5-3(2.5)mg/3ml) 3 ml Q6HRT PRN HHN dyspnea 12/18/16 13:00 12/23/16 12:59 Amiodarone HCl (Cordarone) 200 mg EVERY 12 HOURS ORAL 12/18/16 21:00 01/17/17 20:59 12/20/16 08:57 Amlodipine Besylate (Norvasc) 10 mg DAILY ORAL 12/19/16 09:00 01/18/17 08:59 12/20/16 08:57 Ceftazidime 1 gm/ Dextrose 55 ml @ 110 mls/hr POSTHD IV 12/18/16 18:00 12/25/16 17:59 Clonidine HCl (Catapres) 0.1 mg Q4H PRN ORAL For High Blood Pressure 12/18/16 11:30 01/17/17 11:29 Dextrose (Dextrose 50%) STAT PRN IV Hypoglycemia 12/18/16 15:30 01/17/17 15:29 Dextrose/Sodium Chloride 1,000 ml @ 50 mls/hr Q20H IV 12/18/16 12:00 01/17/17 11:59 12/19/16 23:43 Docusate Sodium (Colace) 100 mg THREE TIMES A DAY ORAL 12/18/16 13:00 01/17/17 12:59 Donepezil HCl (Aricept) 5 mg QHS ORAL 12/19/16 21:00 01/18/17 20:59 Insulin Aspart (NovoLOG) BEFORE MEALS AND HS SUBQ 12/18/16 11:30 01/17/17 11:29 12/20/16 17:09 Losartan Potassium (Cozaar) 50 mg BID ORAL 12/18/16 18:00 01/17/17 17:59 12/20/16 17:07 Metoprolol Tartrate (Lopressor) 25 mg EVERY 12 HOURS ORAL 12/18/16 21:00 01/17/17 20:59 12/20/16 08:57 Ondansetron HCl (Zofran) 4 mg Q6H PRN IVP Nausea & Vomiting 12/18/16 15:30 01/17/17 15:29 Pantoprazole (Protonix) 40 mg DAILY ORAL 12/19/16 09:00 01/18/17 08:59 12/20/16 08:56 Polyethylene Glycol (Miralax) 17 gm HSPRN PRN ORAL Constipation 12/18/16 15:30 01/17/17 15:29 Pregabalin (Lyrica) 75 mg THREE TIMES A DAY PRN ORAL Severe Pain (Pain Scale 7-10) 12/18/16 13:00 01/17/17 12:59 Sevelamer Carbonate (Renvela) 800 mg THREE TIMES A DAY ORAL 12/18/16 13:00 01/17/17 12:59 Vancomycin HCl/ Dextrose (Vancomycin/D5W) 110 ml @ 110 mls/hr POSTHD IVPB 12/18/16 18:30 12/23/16 18:29 Zolpidem Tartrate (Ambien) 5 mg HSPRN PRN ORAL Insomnia 12/18/16 15:30 01/17/17 15:29 MILO CRAMER Dec 20, 2016 17:23
--- NOTE | 2016-12-20 18:28 | Progress Note ---
DATE: 12/20/2016 TREATMENT ATTENDING: Dheeraj Barriga D.O. SUBJECTIVE: The patient is a 66-year-old. The patient complained of fatigue, tired, restless, altered mental status, confused, and disorganized. She has no logical plan for self-care and safety. She has poor insight, poor judgment, and poor impulse control and requires continued hospitalization at this time for stabilization of her symptoms. This clinician assessed the patient and assessed the patient's mental status. Provided the patient with reality orientation. At this time, the patient requires continued hospitalization for stabilization of her symptoms. Continue with medication management and behavioral management. The clinician has reviewed the patient's chart. Discussed treatment with nursing staff. Art Murry PsyD. DR: GLORIA JOB#: [id number] CC:
[2016-12-20 20:00] VITALS: BP 148/87
[2016-12-20] MEDS: Donepezil 5mg Tab ORAL SCH (21:22)
[2016-12-20] MEDS: D5 1/2NS 1,000 ML IV SCH (21:31)
[2016-12-21] VITALS: BP 136/78
[2016-12-21 04:00] VITALS: BP 131/76
[2016-12-21] MEDS: NovoLOG Insulin Flexpen SUBQ SCH ×3 (06:03→16:30)
[2016-12-21 06:37] LABS: BASOPHILS % (AUTO) 0.4 % (0.0-2.0); EOSINOPHILS % (AUTO) 3.7 % (0.0-3.0); LYMPHOCYTES % (AUTO) 7.4 % (20.0-45.0); MEAN CORPUSCULAR VOLUME 90 FL (80-99); MEAN PLATELET VOLUME 12.7 FL (6.5-10.1); MONOCYTES % (AUTO) 6.8 % (1.0-10.0); NEUTROPHILS % (AUTO) 81.7 % (45.0-75.0); PLATELET COUNT 152 K/UL (150-450); RED BLOOD COUNT 3.58 M/UL (4.20-5.40); RED CELL DISTRIBUTION WIDTH 21.1 % (11.6-14.8); WHITE BLOOD COUNT 10.4 K/UL (4.8-10.8)
[2016-12-21 07:07] LABS: CALCIUM 9.1 mg/dL (8.6-10.2); CREATININE 10.2 mg/dL (0.5-0.9); GLOMERULAR FILTRATION RATE 4.6 mL/min (>60); POTASSIUM 4.1 mEQ/L (3.4-4.9)
[2016-12-21 08:04] VITALS: BP 154/84
[2016-12-21] MEDS: Docusate 100mg cap ORAL SCH ×3 (09:00→18:00)
[2016-12-21] MEDS: Amiodarone 200mg tab ORAL SCH (09:00)
[2016-12-21] MEDS: Metoprolol 25mg tab ORAL SCH (09:00)
[2016-12-21] MEDS: Losartan 50mg tab ORAL SCH ×2 (09:00→17:23)
--- NOTE | 2016-12-21 10:24 | General Progress Note ---
Assessment/Plan Status: stable Status Narrative due foot MRI and due HD today Assessment/Plan status: ESRD- HD 12/18 done- HTN DM Hemoptysis vs bloody vomitus plan: HD today - Per pulm and GI Med adjustment per orders Subjective ROS Limited/Unobtainable: No Allergies: Coded Allergies: [place] (Verified Allergy, Unknown, 12/17/16) MORPHINE (Verified Allergy, Unknown, 12/17/16) STRAWBERRY (Verified Allergy, Unknown, 12/17/16) Uncoded Allergies: PEANUTS (Allergy, Unknown, 12/17/16) PLASTIC TAPE (Allergy, Unknown, 12/17/16) Objective Last 24 Hour Vital Signs Date Time Temp Pulse Resp B/P Pulse Ox O2 Delivery O2 Flow Rate FiO2 12/21/16 08:43 Room Air 12/21/16 08:43 98 Room Air 12/21/16 08:04 97.9 79 19 154/84 98 Room Air 12/21/16 04:00 97.8 88 18 131/76 97 Room Air 12/21/16 03:29 87 18 95 Room Air 21 12/21/16 03:26 86 16 96 Room Air 21 12/21/16 00:00 97.9 86 18 136/78 97 Room Air 12/20/16 23:10 83 18 96 Room Air 21 12/20/16 23:08 84 16 95 Room Air 21 12/20/16 21:22 91 148/77 12/20/16 20:26 89 18 96 Room Air 21 12/20/16 20:23 96 Room Air 12/20/16 20:23 87 16 96 Room Air 21 12/20/16 20:23 Room Air 12/20/16 20:00 99.1 91 22 148/87 98 Room Air 12/20/16 17:07 139/83 12/20/16 17:00 98.2 88 20 145/77 95 Room Air 12/20/16 15:05 84 18 95 Room Air 21 12/20/16 15:00 85 16 95 Room Air 21 12/20/16 12:00 98.2 88 18 139/83 97 Room Air 12/20/16 11:20 94 18 95 Room Air 21 12/20/16 11:15 87 16 95 Room Air 21 Intake and Output 12/20/16 12/21/16 19:00 07:00 Intake Total 1080 ml 1050 ml Balance 1080 ml 1050 ml Intake Oral 480 ml 500 ml IV Total 600 ml 550 ml # Voids 1 1 # Bowel Movements 1 Laboratory Tests 12/21/16 05:35: White Blood Count 10.4, Red Blood Count 3.58L, Hemoglobin 9.6L, Hematocrit 32.2L , Mean Corpuscular Volume 90, Mean Corpuscular Hemoglobin 27.0, Mean Corpuscular Hemoglobin Concent 30.0L, Red Cell Distribution Width 21.1H, Platelet Count 152, Mean Platelet Volume 12.7H, Neutrophils (%) (Auto) 81.7H, Lymphocytes (%) (Auto) 7.4L, Monocytes (%) (Auto) 6.8, Eosinophils (%) (Auto) 3.7H, Basophils (%) (Auto) 0.4, Sodium Level 137, Potassium Level 4.1, Chloride Level 95L, Carbon Dioxide Level 19L, Anion Gap 23H, Blood Urea Nitrogen 54H, Creatinine 10.2H, Estimat Glomerular Filtration Rate 4.6, Glucose Level 136H, Calcium Level 9.1 Height (Feet): 5 Height (Inches): 4.00 Weight (Pounds): 160 General Appearance: no apparent distress Objective no change in PE NIALL HOLDER Dec 21, 2016 10:24
--- NOTE | 2016-12-21 10:54 | GI Progress Note ---
Assessment/Plan Problems: (1) Abdominal pain ICD Codes: R10.9 - Unspecified abdominal pain SNOMED: 95756119 (2) Anemia ICD Codes: D64.9 - Anemia, unspecified SNOMED: 273809178 (3) Hemoptysis ICD Codes: R04.2 - Hemoptysis SNOMED: 71945635 (4) Diabetes ICD Codes: E11.9 - Type 2 diabetes mellitus without complications SNOMED: 91289606 Status: unchanged Status Narrative Discussed with Dr. Conn. Assessment/Plan symptomatic treatment at this time zofran prn monitor H&H, transfuse prn ppi bowel regime fu labs outpatient GI procedures Subjective Gastrointestinal/Abdominal: Reports: no symptoms Objective Last 24 Hour Vital Signs Date Time Temp Pulse Resp B/P Pulse Ox O2 Delivery O2 Flow Rate FiO2 12/21/16 09:50 Room Air 3.0 21 12/21/16 08:43 Room Air 12/21/16 08:43 98 Room Air 12/21/16 08:04 97.9 79 19 154/84 98 Room Air 12/21/16 04:00 97.8 88 18 131/76 97 Room Air 12/21/16 03:29 87 18 95 Room Air 12/21/16 03:26 86 16 96 Room Air 12/21/16 00:00 97.9 86 18 136/78 97 Room Air 12/20/16 23:10 83 18 96 Room Air 12/20/16 23:08 84 16 95 Room Air 12/20/16 21:22 91 148/77 12/20/16 20:26 89 18 96 Room Air 12/20/16 20:23 96 Room Air 12/20/16 20:23 87 16 96 Room Air 21 12/20/16 20:23 Room Air 12/20/16 20:00 99.1 91 22 148/87 98 Room Air 12/20/16 17:07 139/83 12/20/16 17:00 98.2 88 20 145/77 95 Room Air 12/20/16 15:05 84 18 95 Room Air 21 12/20/16 15:00 85 16 95 Room Air 21 12/20/16 12:00 98.2 88 18 139/83 97 Room Air 12/20/16 11:20 94 18 95 Room Air 21 12/20/16 11:15 87 16 95 Room Air 21 Intake and Output 12/20/16 12/21/16 19:00 07:00 Intake Total 1080 ml 1050 ml Balance 1080 ml 1050 ml Intake Oral 480 ml 500 ml IV Total 600 ml 550 ml # Voids 1 1 # Bowel Movements 1 Laboratory Tests Test 12/21/16 05:35 White Blood Count 10.4 K/UL (4.8-10.8) Red Blood Count 3.58 M/UL (4.20-5.40) L Hemoglobin 9.6 G/DL (12.0-16.0) L Hematocrit 32.2 % (37.0-47.0) L Mean Corpuscular Volume 90 FL (80-99) Mean Corpuscular Hemoglobin 27.0 PG (27.0-31.0) Mean Corpuscular Hemoglobin Concent 30.0 G/DL (32.0-36.0) L Red Cell Distribution Width 21.1 % (11.6-14.8) H Platelet Count 152 K/UL (150-450) Mean Platelet Volume 12.7 FL (6.5-10.1) H Neutrophils (%) (Auto) 81.7 % (45.0-75.0) H Lymphocytes (%) (Auto) 7.4 % (20.0-45.0) L Monocytes (%) (Auto) 6.8 % (1.0-10.0) Eosinophils (%) (Auto) 3.7 % (0.0-3.0) H Basophils (%) (Auto) 0.4 % (0.0-2.0) Sodium Level 137 mEQ/L (135-145) Potassium Level 4.1 mEQ/L (3.4-4.9) Chloride Level 95 mEQ/L (98-107) L Carbon Dioxide Level 19 mEQ/L (20-30) L Anion Gap 23 (5-15) H Blood Urea Nitrogen 54 mg/dL (7-23) H Creatinine 10.2 mg/dL (0.5-0.9) H Estimat Glomerular Filtration Rate 4.6 mL/min (>60) Glucose Level 136 mg/dL (74-106) H Calcium Level 9.1 mg/dL (8.6-10.2) Height (Feet): 5 Height (Inches): 4.00 Weight (Pounds): 160 General Appearance: no apparent distress, alert Cardiovascular: normal rate Respiratory/Chest: normal breath sounds, no respiratory distress Abdominal Exam: normal bowel sounds, non tender, soft Mayra Arreola N.P. Dec 21, 2016 10:54
[2016-12-21 12:00] VITALS: BP 183/75
--- NOTE | 2016-12-21 12:50 | General Progress Note ---
Assessment/Plan Problem List: (1) HTN (hypertension) ICD Codes: I10 - Essential (primary) hypertension SNOMED: 80227142 (2) CHF (congestive heart failure) ICD Codes: I50.9 - Heart failure, unspecified SNOMED: 96134401 (3) Diabetes ICD Codes: E11.9 - Type 2 diabetes mellitus without complications SNOMED: 54139033 (4) Leukocytosis ICD Codes: D72.829 - Elevated white blood cell count, unspecified SNOMED: 413709989, 440851602 (5) Anemia ICD Codes: D64.9 - Anemia, unspecified SNOMED: 540977043 (6) ESRD (end stage renal disease) ICD Codes: N18.6 - End stage renal disease SNOMED: 70918812 (7) Hypertension ICD Codes: I10 - Essential (primary) hypertension SNOMED: 86768807 (8) Hemoptysis ICD Codes: R04.2 - Hemoptysis SNOMED: 18390529 (9) Abdominal pain ICD Codes: R10.9 - Unspecified abdominal pain SNOMED: 39958061 Status: stable, progressing Assessment/Plan ot pt diet abx dialysis dc to snf Subjective Constitutional: Reports: weakness Allergies: Coded Allergies: [place] (Verified Allergy, Unknown, 12/17/16) MORPHINE (Verified Allergy, Unknown, 12/17/16) STRAWBERRY (Verified Allergy, Unknown, 12/17/16) Uncoded Allergies: PEANUTS (Allergy, Unknown, 12/17/16) PLASTIC TAPE (Allergy, Unknown, 12/17/16) All Systems: reviewed and negative except above Subjective sleepy calm Objective Last 24 Hour Vital Signs Date Time Temp Pulse Resp B/P Pulse Ox O2 Delivery O2 Flow Rate FiO2 12/21/16 12:00 97.6 86 18 183/75 97 Room Air 12/21/16 10:54 Room Air 3.0 12/21/16 10:51 Room Air 3.0 12/21/16 09:50 Room Air 3.0 12/21/16 09:50 Room Air 3.0 21 12/21/16 09:50 Room Air 3.0 21 12/21/16 08:43 Room Air 12/21/16 08:43 98 Room Air 12/21/16 08:04 97.9 79 19 154/84 98 Room Air 12/21/16 06:40 79 16 Room Air 12/21/16 04:00 97.8 88 18 131/76 97 Room Air 12/21/16 03:29 87 18 95 Room Air 21 12/21/16 03:26 86 16 96 Room Air 21 12/21/16 00:00 97.9 86 18 136/78 97 Room Air 12/20/16 23:10 83 18 96 Room Air 21 12/20/16 23:08 84 16 95 Room Air 21 12/20/16 21:22 91 148/77 12/20/16 20:26 89 18 96 Room Air 21 12/20/16 20:23 96 Room Air 12/20/16 20:23 87 16 96 Room Air 21 12/20/16 20:23 Room Air 12/20/16 20:00 99.1 91 22 148/87 98 Room Air 12/20/16 17:07 139/83 12/20/16 17:00 98.2 88 20 145/77 95 Room Air 12/20/16 15:05 84 18 95 Room Air 21 12/20/16 15:00 85 16 95 Room Air 21 Intake and Output 12/20/16 12/21/16 19:00 07:00 Intake Total 1080 ml 1050 ml Balance 1080 ml 1050 ml Intake Oral 480 ml 500 ml IV Total 600 ml 550 ml # Voids 1 1 # Bowel Movements 1 Laboratory Tests 12/21/16 05:35: White Blood Count 10.4, Red Blood Count 3.58L, Hemoglobin 9.6L, Hematocrit 32.2L , Mean Corpuscular Volume 90, Mean Corpuscular Hemoglobin 27.0, Mean Corpuscular Hemoglobin Concent 30.0L, Red Cell Distribution Width 21.1H, Platelet Count 152, Mean Platelet Volume 12.7H, Neutrophils (%) (Auto) 81.7H, Lymphocytes (%) (Auto) 7.4L, Monocytes (%) (Auto) 6.8, Eosinophils (%) (Auto) 3.7H, Basophils (%) (Auto) 0.4, Sodium Level 137, Potassium Level 4.1, Chloride Level 95L, Carbon Dioxide Level 19L, Anion Gap 23H, Blood Urea Nitrogen 54H, Creatinine 10.2H, Estimat Glomerular Filtration Rate 4.6, Glucose Level 136H, Calcium Level 9.1 Height (Feet): 5 Height (Inches): 4.00 Weight (Pounds): 160 General Appearance: lethargic EENT: normal ENT inspection Neck: normal alignment Cardiovascular: normal peripheral pulses, normal rate, regular rhythm Respiratory/Chest: chest wall non-tender, lungs clear, normal breath sounds Abdomen: normal bowel sounds, non tender, soft Extremities: normal inspection Edema: no edema noted Arm (L), no edema noted Arm (R), no edema noted Leg (L), no edema noted Leg (R), no edema noted Pedal (L), no edema noted Pedal (R), no edema noted Generalized Neurologic: motor weakness Skin: normal pigmentation, warm/dry CATARINA CHAU Dec 21, 2016 12:50
--- NOTE | 2016-12-21 15:30 | Cardiac Electrophysiology PN ---
Assessment/Plan Assessment/Plan 1. Shortness of breath due to volume overload.Better after hemodialysis. 2. Hypertension on Norvasc 10 mg daily,metoprolol 25 mg b.i.d., Cozaar 50 mg b.i.d. and hemodialysis. 3. Volume overload due to renal failure.Echocardiogram showed Ef 55% 4. Atrial fibrillation. In SR on on amiodarone 200 mg b.i.d. and metoprolol 25 mg b.i.d. T 5. Anemia due to renal failure. 6. Diabetes. 7. ESRD Had Dialysis today. DW RN DC planning today Subjective Subjective Had dialysis today. Comfortable in NAD. Wants to go home. No events overnight. Objective Last 24 Hour Vital Signs Date Time Temp Pulse Resp B/P Pulse Ox O2 Delivery O2 Flow Rate FiO2 12/21/16 13:17 Room Air 3.0 12/21/16 12:00 97.6 86 18 183/75 97 Room Air 12/21/16 10:54 Room Air 3.0 12/21/16 10:51 Room Air 3.0 12/21/16 09:50 Room Air 3.0 12/21/16 09:50 Room Air 3.0 12/21/16 09:50 Room Air 3.0 12/21/16 08:43 Room Air 12/21/16 08:43 98 Room Air 12/21/16 08:04 97.9 79 19 154/84 98 Room Air 12/21/16 06:40 79 16 Room Air 12/21/16 04:00 97.8 88 18 131/76 97 Room Air 12/21/16 03:29 87 18 95 Room Air 12/21/16 03:26 86 16 96 Room Air 12/21/16 00:00 97.9 86 18 136/78 97 Room Air 12/20/16 23:10 83 18 96 Room Air 12/20/16 23:08 84 16 95 Room Air 12/20/16 21:22 91 148/77 12/20/16 20:26 89 18 96 Room Air 12/20/16 20:23 96 Room Air 12/20/16 20:23 87 16 96 Room Air 12/20/16 20:23 Room Air 12/20/16 20:00 99.1 91 22 148/87 98 Room Air 12/20/16 17:07 139/83 12/20/16 17:00 98.2 88 20 145/77 95 Room Air Intake and Output 12/20/16 12/21/16 19:00 07:00 Intake Total 1080 ml 1050 ml Balance 1080 ml 1050 ml Intake Oral 480 ml 500 ml IV Total 600 ml 550 ml # Voids 1 1 # Bowel Movements 1 Laboratory Tests Test 12/21/16 05:35 White Blood Count 10.4 K/UL (4.8-10.8) Red Blood Count 3.58 M/UL (4.20-5.40) L Hemoglobin 9.6 G/DL (12.0-16.0) L Hematocrit 32.2 % (37.0-47.0) L Mean Corpuscular Volume 90 FL (80-99) Mean Corpuscular Hemoglobin 27.0 PG (27.0-31.0) Mean Corpuscular Hemoglobin Concent 30.0 G/DL (32.0-36.0) L Red Cell Distribution Width 21.1 % (11.6-14.8) H Platelet Count 152 K/UL (150-450) Mean Platelet Volume 12.7 FL (6.5-10.1) H Neutrophils (%) (Auto) 81.7 % (45.0-75.0) H Lymphocytes (%) (Auto) 7.4 % (20.0-45.0) L Monocytes (%) (Auto) 6.8 % (1.0-10.0) Eosinophils (%) (Auto) 3.7 % (0.0-3.0) H Basophils (%) (Auto) 0.4 % (0.0-2.0) Sodium Level 137 mEQ/L (135-145) Potassium Level 4.1 mEQ/L (3.4-4.9) Chloride Level 95 mEQ/L (98-107) L Carbon Dioxide Level 19 mEQ/L (20-30) L Anion Gap 23 (5-15) H Blood Urea Nitrogen 54 mg/dL (7-23) H Creatinine 10.2 mg/dL (0.5-0.9) H Estimat Glomerular Filtration Rate 4.6 mL/min (>60) Glucose Level 136 mg/dL (74-106) H Calcium Level 9.1 mg/dL (8.6-10.2) Objective HEAD AND NECK: Showed no JVD. LUNGS: Decreased breath sounds. CARDIOVASCULAR: Shows tachycardic. S1 and S2 with no gallop or murmur. ABDOMEN: Soft. EXTREMITIES: Status post right metatarsal amputation. 1+ pitting edema. KADEN ZHU Dec 21, 2016 15:30
[2016-12-21 16:31] VITALS: BP 154/90
--- NOTE | 2016-12-21 16:31 | Diagnostic Imaging Report ---
Indication: Pain Technique: Right foot imaging utilizing multiplanar T1 fast spin-echo, proton and T2 fast spin-echo with fat saturation, and STIR. Comparison: None Findings: Amputation has been performed at the metatarsal tarsal joints or at the base of the metatarsals. There is no evidence of bone marrow edema involving the stump to suggest acute osteomyelitis. There is no abscess identified. Impression: No evidence of acute osteomyelitis or abscess.
--- NOTE | 2016-12-21 16:47 | Infectious Diseases Prog Note ---
Assessment/Plan Problems: (1) Interstitial lung disease Assessment & Plan: suspect pneumonia, continue vancomycin and cefepime for 8 days total , EOT 12/24/16. 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 & Plan: she is colonized Subjective Constitutional: Denies: anorexia, chills, drenching sweats, fatigue, fever, no symptoms, other HEENT: Denies: congestion, coryza, dysphagia, hearing change, no symptoms, other, visual change Respiratory: Denies: dry cough, no symptoms, other, productive cough, shortness of breath Cardiovascular: Denies: chest pain, dyspnea on exertion, no symptoms, other, palpitations Gastrointestinal/Abdominal: Denies: bloating, blood in stool, constipation, diarrhea, nausea, no symptoms, other, vomiting Genitourinary: Denies: dysuria, frequency, hematuria, last menstrual period, no symptoms, nocturia, other, vaginal bleed/discharge Neurologic: Denies: confusion, headache, no symptoms, numbness, other, weakness Psychiatric: Denies: anxiety, depression, no symptoms, other Skin: Denies: no symptoms, other, rash, ulcer Endocrine: Denies: feels cold, feels warm, no symptoms, other Allergies: Coded Allergies: [place] (Verified Allergy, Unknown, 12/17/16) MORPHINE (Verified Allergy, Unknown, 12/17/16) STRAWBERRY (Verified Allergy, Unknown, 12/17/16) Uncoded Allergies: PEANUTS (Allergy, Unknown, 12/17/16) PLASTIC TAPE (Allergy, Unknown, 12/17/16) Objective Vital Signs Last 24 Hour Vital Signs Date Time Temp Pulse Resp B/P Pulse Ox O2 Delivery O2 Flow Rate FiO2 12/21/16 16:31 97.9 93 18 154/90 93 Room Air 12/21/16 13:17 Room Air 3.0 21 12/21/16 12:00 97.6 86 18 183/75 97 Room Air 12/21/16 10:54 Room Air 3.0 12/21/16 10:51 Room Air 3.0 12/21/16 09:50 Room Air 3.0 21 12/21/16 09:50 Room Air 3.0 21 12/21/16 09:50 Room Air 3.0 21 12/21/16 08:43 Room Air 12/21/16 08:43 98 Room Air 12/21/16 08:04 97.9 79 19 154/84 98 Room Air 12/21/16 06:40 79 16 Room Air 12/21/16 04:00 97.8 88 18 131/76 97 Room Air 12/21/16 03:29 87 18 95 Room Air 12/21/16 03:26 86 16 96 Room Air 21 12/21/16 00:00 97.9 86 18 136/78 97 Room Air 12/20/16 23:10 83 18 96 Room Air 12/20/16 23:08 84 16 95 Room Air 12/20/16 21:22 91 148/77 12/20/16 20:26 89 18 96 Room Air 12/20/16 20:23 96 Room Air 12/20/16 20:23 87 16 96 Room Air 12/20/16 20:23 Room Air 12/20/16 20:00 99.1 91 22 148/87 98 Room Air 12/20/16 17:07 139/83 12/20/16 17:00 98.2 88 20 145/77 95 Room Air Height (Feet): 5 Height (Inches): 4.00 Weight (Pounds): 160 General Appearance: WD/WN, no acute distress HEENT: normocephalic, atraumatic, anicteric, mucous membranes moist Respiratory/Chest: chest wall non-tender, lungs clear, normal breath sounds, no respiratory distress, no accessory muscle use Cardiovascular: normal peripheral pulses, normal rate, regular rhythm, no gallop/murmur, no JVD Abdomen: normal bowel sounds, soft, non tender, no organomegaly, non distended , no mass Extremities: no cyanosis, no clubbing Skin: no rash, no lesions, ulcers Laboratory Tests Test 12/21/16 05:35 White Blood Count 10.4 K/UL (4.8-10.8) Red Blood Count 3.58 M/UL (4.20-5.40) L Hemoglobin 9.6 G/DL (12.0-16.0) L Hematocrit 32.2 % (37.0-47.0) L Mean Corpuscular Volume 90 FL (80-99) Mean Corpuscular Hemoglobin 27.0 PG (27.0-31.0) Mean Corpuscular Hemoglobin Concent 30.0 G/DL (32.0-36.0) L Red Cell Distribution Width 21.1 % (11.6-14.8) H Platelet Count 152 K/UL (150-450) Mean Platelet Volume 12.7 FL (6.5-10.1) H Neutrophils (%) (Auto) 81.7 % (45.0-75.0) H Lymphocytes (%) (Auto) 7.4 % (20.0-45.0) L Monocytes (%) (Auto) 6.8 % (1.0-10.0) Eosinophils (%) (Auto) 3.7 % (0.0-3.0) H Basophils (%) (Auto) 0.4 % (0.0-2.0) Sodium Level 137 mEQ/L (135-145) Potassium Level 4.1 mEQ/L (3.4-4.9) Chloride Level 95 mEQ/L (98-107) L Carbon Dioxide Level 19 mEQ/L (20-30) L Anion Gap 23 (5-15) H Blood Urea Nitrogen 54 mg/dL (7-23) H Creatinine 10.2 mg/dL (0.5-0.9) H Estimat Glomerular Filtration Rate 4.6 mL/min (>60) Glucose Level 136 mg/dL (74-106) H Calcium Level 9.1 mg/dL (8.6-10.2) Current Medications Medications (Trade) Dose Ordered Sig/Gretchen Route PRN Reason Start Time Stop Time Status Last Admin Dose Admin Acetaminophen (Tylenol) 650 mg Q4H PRN ORAL fever 12/18/16 11:30 01/17/17 11:29 Al Hydroxide/Mg Hydroxide (Mylanta II) 30 ml Q6H PRN ORAL dyspepsia 12/18/16 15:30 01/17/17 15:29 Albuterol/ Ipratropium (DuoNeb 0.5-3(2.5)mg/3ml) 3 ml Q6HRT PRN HHN dyspnea 12/18/16 13:00 12/23/16 12:59 Amiodarone HCl (Cordarone) 200 mg EVERY 12 HOURS ORAL 12/18/16 21:00 01/17/17 20:59 12/20/16 21:22 Amlodipine Besylate (Norvasc) 10 mg DAILY ORAL 12/19/16 09:00 01/18/17 08:59 12/20/16 08:57 Ceftazidime 1 gm/ Dextrose 55 ml @ 110 mls/hr POSTHD IV 12/18/16 18:00 12/25/16 17:59 Clonidine HCl (Catapres) 0.1 mg Q4H PRN ORAL For High Blood Pressure 12/18/16 11:30 01/17/17 11:29 Dextrose (Dextrose 50%) STAT PRN IV Hypoglycemia 12/18/16 15:30 01/17/17 15:29 Dextrose/Sodium Chloride 1,000 ml @ 50 mls/hr Q20H IV 12/18/16 12:00 01/17/17 11:59 12/20/16 21:31 Docusate Sodium (Colace) 100 mg THREE TIMES A DAY ORAL 12/18/16 13:00 01/17/17 12:59 Donepezil HCl (Aricept) 5 mg QHS ORAL 12/19/16 21:00 01/18/17 20:59 12/20/16 21:22 Insulin Aspart (NovoLOG) BEFORE MEALS AND HS SUBQ 12/18/16 11:30 01/17/17 11:29 12/21/16 06:03 Losartan Potassium (Cozaar) 50 mg BID ORAL 12/18/16 18:00 01/17/17 17:59 12/20/16 17:07 Metoprolol Tartrate (Lopressor) 25 mg EVERY 12 HOURS ORAL 12/18/16 21:00 01/17/17 20:59 12/20/16 21:22 Ondansetron HCl (Zofran) 4 mg Q6H PRN IVP Nausea & Vomiting 12/18/16 15:30 01/17/17 15:29 Pantoprazole (Protonix) 40 mg DAILY ORAL 12/19/16 09:00 01/18/17 08:59 12/21/16 11:14 Polyethylene Glycol (Miralax) 17 gm HSPRN PRN ORAL Constipation 12/18/16 15:30 01/17/17 15:29 Pregabalin (Lyrica) 75 mg THREE TIMES A DAY PRN ORAL Severe Pain (Pain Scale 7-10) 12/18/16 13:00 01/17/17 12:59 Sevelamer Carbonate (Renvela) 800 mg THREE TIMES A DAY ORAL 12/18/16 13:00 01/17/17 12:59 Vancomycin HCl/ Dextrose (Vancomycin/D5W) 110 ml @ 110 mls/hr POSTHD IVPB 12/18/16 18:30 12/23/16 18:29 Zolpidem Tartrate (Ambien) 5 mg HSPRN PRN ORAL Insomnia 12/18/16 15:30 01/17/17 15:29 Ajay Garcia M.D. Dec 21, 2016 16:47
--- NOTE | 2016-12-21 16:48 | Progress Note ---
DATE: 12/20/2016 PSYCHOTHERAPY CONSULTATION PROGRESS NOTE SUBJECTIVE: The patient is severely disorganized and altered in mental status. She has no logical plan for self-care and safety. disorganized at this time. This clinician assessed the patient and assessed the patient's mental status. Provided the patient with reality orientation. Continue with medication management and behavioral management. The clinician has reviewed the patient's chart. Discussed treatment with nursing staff. Art Murry PsyD. DR: Tanesha JOB#: [id number] CC:
[2016-12-21] MEDS ORDERED: D5 1/2NS 1000ml IV ONE (16:49)
[2016-12-21 17:23] VITALS: BP 154/90
[2016-12-21] MEDS ORDERED: MYLANTA II30 ML ORAL (17:57)
[2016-12-21] MEDS ORDERED: ACETAMINOPHEN325 M3 PO (17:57)
[2016-12-21] MEDS ORDERED: NORVASC10 MG ORAL (17:59)
[2016-12-21] MEDS ORDERED: PACERONE200 MG ORAL (17:59)
[2016-12-21] MEDS ORDERED: FORTAZ1 GM IV (18:00)
[2016-12-21] MEDS ORDERED: CLONIDINE HCL0.1 MG PO (18:02)
[2016-12-21] MEDS ORDERED: COLACE100 MG ORAL (18:03)
[2016-12-21] MEDS ORDERED: ARICEPT5 MG ORAL (18:04)
[2016-12-21] MEDS ORDERED: NOVOLOG100 UNITS1 SUBQ (18:05)
[2016-12-21] MEDS ORDERED: DUONEB 0.5-3(2.53 ML HHN (18:07)
[2016-12-21] MEDS ORDERED: ZOFRAN4 M3 ORAL (18:07)
[2016-12-21] MEDS ORDERED: PROTONIX40 MG ORAL (18:08)
[2016-12-21] MEDS ORDERED: MIRALAX17 G2 ORAL (18:09)
[2016-12-21] MEDS ORDERED: LYRICA75 M1 ORAL (18:09)
[2016-12-21] MEDS ORDERED: VANCOMYCIN1 GM/2502 IVPB (18:11)
[2016-12-21] MEDS ORDERED: AMBIEN5 MG ORAL (18:12)
[2016-12-21] MEDS ORDERED: Tubing IV Secondary IV ONE (19:23)
--- NOTE | 2016-12-22 20:28 | Progress Note ---
DATE: 12/21/2016 PSYCHOTHERAPY CONSULTATION PROGRESS NOTE TREATING ATTENDING PHYSICIAN: Dheeraj Barriga D.O. Subjective: The patient is a 66-year-old female, unable to provide reliable information 00:35 at this time, unable to provide reliable self-care, required continuous hospitalization for stabilization of her symptoms. She has poor insight, poor judgement and poor impulse control and required continued hospitalization for stabilization of symptoms. This clinician saw the patient. Provide the patient with reality orientation and supportive psychotherapy. The patient has poor insight, judgement and poor impulse control. This clinician saw this patient about the patient's mental status. Continue with medication management and behavioral management and coping skills. Reviewed the patient's chart and discussed treatment with nursing staff. Art Murry PsyD. DR: LUIZA JOB#: [id number] CC:
--- NOTE | 2016-12-22 23:51 | Cardiology Report ---
APPROVED REPORT EKG Measurement Heart [id number] Sinus tachycardia Abnormal QRS-T angle, consider primary T wave abnormality Voltage criteria for LVH Abnormal ECG
--- NOTE | 2016-12-23 08:43 | Cardiology Report ---
APPROVED REPORT EXAM: Two-dimensional and M-mode echocardiogram with Doppler and color Doppler. INDICATION Congestive Heart Failure M-Mode DIMENSIONS IVSd1.0 (0.7-1.1cm)Left Atrium (MM)4.3 (1.6-4.0cm) LVDd4.7 (3.5-5.6cm)Aortic Root2.3 (2.0-3.7cm) PWd0.9 (0.7-1.1cm)Aortic Cusp Exc.1.4 (1.5-2.0cm) LVDs3.0 (2.5-4.0cm) PWs1.4 cm Technically difficult study due to poor acoustic windows. Normal left ventricular chamber size, systolic function and wall motion. Left ventricular ejection fraction estimated to be 60-65%. Mild to moderate left ventricular hypertrophy. Small posterior pericardial effusion. Right cardiac chamber sizes are within normal limits. Moderate left atrial enlargement by 2D. Focal aortic valve sclerosis with adequate cusp excursion Mildly thickened mitral valve leaflets with normal excursion. Mitral annulus and aortic root calcification. Pulmonic valve is well visualized. Normal tricuspid valve structure. IVC not obtainable. A color flow and spectral Doppler study was performed and revealed: Mild aortic regurgitation. Moderate mitral regurgitation (2 Jets). Left ventricular diastolic dysfunction not obtainable due to arrhythmia. Trace tricuspid regurgitation. Tricuspid systolic velocities suggests peak right ventricular systolic pressure of 37 mmHg Consistent with mild pulmonary hypertension. Pulmonic regurgitation present.
--- NOTE | 2016-12-23 13:37 | Discharge Summary ---
Discharge Summary Hospital Course Date of Admission Dec 17, 2016 at 10:30 Date of Discharge Dec 21, 2016 at 19:24 Admitting Diagnosis hemoptysis, esrd HPI Freddy Contreras is a 66 year old female who was admitted on Dec 17, 2016 at 10: 30 for Hemoptysis/End Stage Renal Disease Hospital Course [id number] Discharge Discharge Disposition Patient was discharged to SNF/Subacute Facility(03) Discharge Diagnoses: Valarie Hobbs NP Dec 23, 2016 13:37
--- NOTE | 2016-12-24 05:09 | Discharge Summary 2 SIG ---
DATE OF ADMISSION: 12/17/2016 DATE OF DISCHARGE: 12/21/2016 CONSULTANTS: 1. Ely Spaulding M.D. 2. Daniel Lorenzo M.D. 3. Bran Conn M.D. 4. Ranjeet Herrera M.D. 5. Cordell Hung M.D. 6. Art Murry M.D. BRIEF HOSPITAL COURSE: The patient is a 66-year-old female, who was [facility] in from jail for hemoptysis. She has a prior history of end-stage renal disease, and has been on hemodialysis. On evaluation at ED, she was found to have elevated WBC with x-ray showing cardiomegaly without evidence of mediastinal widening or vascular congestion. She was noted to have WBC and was given empirically IV antibiotics. She was seen by the pulmonology service. The patient most likely with hemorrhagic bronchitis. Dr. Conn was consulted. The patient has no active hemoptysis, nausea, or vomiting. She was given symptomatic treatment with p.r.n. Zofran and proton pump inhibitors. Hemoptysis resolved. She continued with inpatient hemodialysis and hypertension was managed with Norvasc, metoprolol, and Cozaar. Atrial fibrillation converted to sinus rhythm and has been on amiodarone 200 mg t.i.d and metoprolol 25 mg b.i.d. She had a venous duplex of lower extremity, which was negative for DVT. Echocardiogram, which showed ejection fraction of 60% to 65%. MRI done on the foot was negative for acute osteomyelitis. She was eventually discharged to jail to continue IV vancomycin 500 mg post hemodialysis The patient was eventually discharged back to jail. FINAL DIAGNOSES: 1. Hemoptysis with interstitial lung disease. 2. End-stage renal disease, on hemodialysis. 3. Hypertension. 4. Diabetes mellitus. 5. Leukocytosis. 6. Paranoid schizophrenia . 7. Paroxysmal atrial fibrillation. Dheeraj Barriga D.O. I have been assigned to dictate discharge summary on this account and I was not involved in the patient's management. Valarie Hobbs N.P. DR: Aliza JOB#: [id number] CC: MARILYN
--- NOTE | 2016-12-27 10:08 | Progress Note ---
DATE: 12/20/2016 NOTE: POOR AUDIO SUBJECTIVE: This is a 66-year-old female patient with hemoptysis, end-stage renal disease, and confusion. PLAN: Continue treatment with psychotropic medications to prevent any further decline . She has multiple episodes of confusion and cognition to her baseline. She requires psychiatric followup to prevent any further decline in cognition . Chart reviewed and discussed with staff. Cordell Hung M.D. DR: Mendel JOB#: [id number] CC:
--- NOTE | 2016-12-27 13:09 | Progress Note ---
DATE: 12/21/2016 SUBJECTIVE: This is a 66-year-old patient, who . PLAN: Continue treatment with psychotropic medications to prevent any further decline in her cognition. Continued to be followed by Psychiatry. Chart was reviewed. Discussed with staff. Seen and assessed at bedside. Cordell Hung M.D. DR: Mendel JOB#: [id number] CC:
== END 2016-12-21 19:24 | DRG 196 ==
LOC: EDBD 09:04 → EMR 09:15 → 2W 10:30 → EDBEDREQ 10:40 → 2W 14:12 → 4W 12-18 12:21
PROC: 5A1D60Z (ICD-10-PCS; principal; 2016-12-18)
DX: J84.9 Interstitial pulmonary disease, unspecified (principal); N18.6 End stage renal disease; I13.0 Hypertensive heart and chronic kidney disease with heart failure and stage 1 through stage 4 chronic kidney disease, or unspecified chronic kidney disease; R04.2 Hemoptysis; I48.91 Unspecified atrial fibrillation; F20.0 Paranoid schizophrenia; J44.9 Chronic obstructive pulmonary disease, unspecified; Z99.2 Dependence on renal dialysis; K21.9 Gastro-esophageal reflux disease without esophagitis; L97.519 Non-pressure chronic ulcer of other part of right foot with unspecified severity; J40 Bronchitis, not specified as acute or chronic; E11.9 Type 2 diabetes mellitus without complications; Z88.6 Allergy status to analgesic agent; Z89.431 Acquired absence of right foot; E87.79 Other fluid overload; D63.1 Anemia in chronic kidney disease; F32.9 Major depressive disorder, single episode, unspecified; R10.9 Unspecified abdominal pain
CPT/HCPCS: 36415; 71010; 80048; 80053; 80061; 82550; 82553; 82962; 82977; 83036; 83605; 83735; 83880; 84100; 84443; 84484; 84550; 85007; 85025; 85610; 85730; 86140; 86850; 86900; 86901; 87040; 87081; 93005; 93306; 93970; 94664; 94760; 97803; J1815